=== PATIENT | male | born 1955 | race Caucasian/White ===

== ENCOUNTER 2019-01-23 13:18 | Outpatient (RCR) | payer BC, SELFPAY | END 2019-01-23 23:59 | LOC: NS 13:18 | PROVIDERS: Family Provider Internal Medicine; PCP Internal Medicine; Visit Provider Orthopaedic Surgery | DX: E66.01 Morbid (severe) obesity due to excess calories (principal); Z68.42 Body mass index [BMI] 45.0-49.9, adult; Z71.3 Dietary counseling and surveillance | CPT/HCPCS: 97802 ==

== ENCOUNTER → 2019-07-13 11:10 | Outpatient (CLI) | payer BC, SELFPAY ==
[2019-07-13 12:06] LABS: AST(SGOT) 66 U/L (15-37); Alanine Aminotransfer ALT/SGPT 75 U/L (16-61); Albumin, Serum 3.7 g/dL (3.2-5.0); Alkaline Phosphatase 70 U/L (45-117); Globulin 4.3 g/dL (2.2-4.2)
== END ==
PROVIDERS: Family Provider Internal Medicine; PCP Internal Medicine; Visit Provider Family Medicine
DX: R74.8 Abnormal levels of other serum enzymes (principal)
CPT/HCPCS: 36415; 80076

== ENCOUNTER → 2019-10-12 10:30 | Outpatient (CLI) | payer BC, SELFPAY ==
[2019-10-12 12:20] LABS: AST(SGOT) 40 U/L (15-37); Alanine Aminotransfer ALT/SGPT 54 U/L (16-61); Albumin, Serum 3.9 g/dL (3.2-5.0); Alkaline Phosphatase 68 U/L (45-117); Bilirubin, Direct 0.23 mg/dL (0.00-0.30); Protein, Total 7.9 g/dL (6.4-8.2)
== END ==
PROVIDERS: Family Provider Internal Medicine; PCP Internal Medicine; Referring Provider Family Medicine; Visit Provider Family Medicine
DX: R74.8 Abnormal levels of other serum enzymes (principal)
CPT/HCPCS: 36415; 80076

== ENCOUNTER → 2023-10-14 | Outpatient (CLI) | payer MEDICARE, OTHER, SELFPAY ==
--- NOTE | 2023-10-14 09:57 | MRI_ITS ---
EXAM: MR brain with and without contrast. HISTORY: Parkinson''s disease TECHNIQUE: MR Brain WO/W Contrast. Standard MR sequences were obtained with and without contrast. Postcontrast T1-weighted images were obtained after the administration of IV 30ML CLARISCAN. COMPARISON: None. LIMITATIONS: None. BRAIN: Mild to moderate white matter changes bilaterally. No diffusion abnormalities. No enhancing lesions. Features of the substantia nigra not well delineated. VENTRICLES: No hydrocephalus. EXTRA-AXIAL SPACES: No hemorrhages, fluid collections, or masses. CALVARIUM/SKULL BASE: Normal. FACE/SINUSES: Visualized portions normal. SOFT TISSUES: Normal. OTHER: None. CONCLUSION: Features of the substantia nigra are not well delineated. Ultra high field MRI would better evaluate the substantia nigra. Mild to moderate white matter changes are nonspecific, but often secondary to chronic microvascular ischemia. No acute infarct. No enhancing lesions. Electronically Signed: Ronni Nunes MD at 21:40 EST , MRI/Brain W/WO Contrast IMPRESSION: undefined
[2023-10-14 10:45] LABS: Hematocrit 44.5 % (40-54); Hemoglobin 15.2 g/dL (13.0-16.5); Mean Corp Hgb Conc 34.2 g/dL (32-36); Mean Corpuscular Hgb 30.3 pg (27.0-32.0); Mean Corpuscular Volume 88.8 fL (80-94); Mean Platelet Vol. 10.8 fl (6.2-12.0); Platelet Count 177 K/mm3 (150-450); RBC Distribution Width CV 13.5 % (11.6-14.6); RBC Distribution Width SD 43.8 fl (35.1-43.9); Red Blood Count 5.01 M/mm3 (4.6-6.2); White Blood Count 6.4 K/mm3 (4.4-11.0)
[2023-10-14 10:45] LABS: CREATININE FINGERSTICK < 1.0 mg/dL (0.70-1.30); EGFR FINGERSTICK > 60.0000 mL/min (>60)
[2023-10-14 11:12] LABS: Vitamin B12 1028 pg/mL (211-911)
[2023-10-14 12:00] LABS: ALB/GLOB Ratio 0.8 RATIO (0.9-2.4); AST(SGOT) 61 U/L (15-37); Alanine Aminotransfer ALT/SGPT 18 U/L (16-61); Albumin, Serum 3.5 g/dL (3.2-5.0); Alkaline Phosphatase 70 U/L (45-117); Anion Gap 3 (5-15); BUN 15 mg/dL (7-18); Chloride 107 mmol/L (98-107); Creatinine, Serum 0.79 mg/dL (0.70-1.30); EST Glomerular Filtration Rate 104 mL/min (>60); Est Glom Filt Rate - Afr Amer 126 mL/min (>60); Globulin 4.3 g/dL (2.2-4.2); Glucose 118 mg/dL (74-106); Protein, Total 7.8 g/dL (6.4-8.2); Sodium Level 140 mmol/L (136-145)
[2023-10-18 16:09] LABS: Free Kappa Light Chains 24.8 mg/L (3.3-19.4); Free Lambda Light Chains 17.8 mg/L (5.7-26.3)
== END | disposition home or self-care (01) ==
PROVIDERS: PCP Internal Medicine; Visit Provider Psychiatry & Neurology Neurology
DX: G20.A1 Parkinson's disease without dyskinesia, without mention of fluctuations (principal); F81.9 Developmental disorder of scholastic skills, unspecified; G62.9 Polyneuropathy, unspecified; Z79.899 Other long term (current) drug therapy
CPT/HCPCS: 36415; 70553; 80053; 82607; 82746; 83883; 84425; 84443; 85027; A9575

== ENCOUNTER → 2023-12-07 | Outpatient (CLI) | payer MEDICARE, OTHER, SELFPAY ==
--- OUTSIDE RECORDS SUMMARY | 2023-12-07 12:46 | XMS RPT_ITS | CCD ---
Author Name Unknown Address [address] [place] [address] Organization [facility] Care Team Providers Care Punch Press Setter Name Role Phone AM[place] [place] CARMEN Unavailable Unavailab enrique HUYNH[place] [place] CARMEN Unavailable Unavailab enrique HUYNH[place] [place] CARMEN Unavailable Unavailab le AMINA[place] [place] CARMEN Unavailable Unavailab le AMINA[place] [place] CARMEN Unavailable Unavailab le AMINA[place] [place] CARMEN Unavailable Unavailab le AMINA([facility] [place] CARMEN Unavailable Unavailab le AMINA([facility] [place] CARMEN Unavailable Unavailab le AMINA([facility] [place] CARMEN Unavailable Unavailab le AMINA([facility] [place] CARMEN Unavailable Unavailab le AMINA([facility] [place] CARMEN Unavailable UnavailCHEIKH Aguirre PA-C Attending CHEIKH Klein PA-C Primary Care Lindsayab CHEIKH Contreras PA-C Admitting UnavailReagan Johnson MD Primary Care Provider Reagan Oconnor MD Primary Care Provider Reagan Ocnonor MD Primary Care Provider Tay Mccloud PA-C Unavailable Neurology Provider Unavailable Unavailable Lauren Alexander LPN Unavailable Unavailable Unavailable Medications Current Medications Medication Drug Class(es) Dates Sig (Normalized) Sig (Original) propranolol hydrochloride 40 mg oral tablet (3 sources) beta-Adrenergic Alvarez Start: 05-05-2023 propranoloL 40 mg tablet ; 1 (one) tablet two times daily for 30 days Quantity: 60 {Tablet} Refills: 2 Ordered: 05-May-2023 CARMEN Mccloud Start: 05-May-2023 Completed/Discontinued Medications Medication Drug Class(es) Dates Sig (Normalized) Sig (Original) dorzolamide 20 mg/ml / timolol 5 mg/ml ophthalmic solution (8 sources) Carbonic Anhydrase Inhibitor, beta-Adrenergic Alvarez Start: 10-31-2018 take 1 drop(s) into the eye(s) every twelve hours dorzolamide-timol ol (COSOPT) 22.3-6.8 mg/mL ophthalmic solution INSTILL 1 DROP INTO BOTH EYES EVERY 12 HOURS 4 10/31/2018 Active Problems Active Problems Problem Classification Problem Date Documented Date Episodic/Chronic Essential hypertension (1 source) Essential hypertension Onset: 07-11-2018 Glaucoma (8 sources) Glaucoma; Translations: [Other specified glaucoma] Onset: 02-01-2019 02-01-2019 Chronic Hyperplasia of prostate (8 sources) Benign prostatic hypertrophy with outflow obstruction; Translations: [Benign prostatic hyperplasia with lower urinary tract symptoms] Onset: 10-28-2009 10-28-2009 Chronic Osteoarthritis (3 sources) Unilateral primary osteoarthritis, right knee; Translations: [Unilateral primary osteoarthritis, right knee] Onset: 03-06-2021 Chronic Other ear and sense organ disorders (11 sources) Hearing loss; Translations: [Unspecified hearing loss, unspecified ear] Onset: 02-01-2019 02-01-2019 Chronic Other hereditary and degenerative nervous system conditions (12 sources) Resting tremor; Translations: [Other specified forms of tremor] 06-01-2023 Chronic Other lower respiratory disease (6 sources) Cough; Translations: [Cough] 04-25-2023 Episodic Other screening for suspected conditions (not mental disorders or infectious disease) (12 sources) Patient encounter status; Translations: [Encounter for screening for lipoid disorders] 04-25-2023 Episodic Residual codes; unclassified (6 sources) Edema of lower extremity; Translations: [Localized edema] 04-25-2023 Episodic Retinal detachments; defects; vascular occlusion; and retinopathy (8 sources) Degenerative disorder of macula ; Translations: [Unspecified macular degeneration] Onset: 02-01-2019 02-01-2019 Chronic Unclassified (1 source) Other skin changes due to chronic exposure to nonionizing radiation / L57.8(ICD-10) Onset: 07-11-2018 Unclassified (1 source) Actinic keratosis / L57.0(ICD-10) Onset: 07-11-2018 Unclassified (1 source) Exposure to sunlight, initial encounter / X32.XXXA(ICD-10) Onset: 07-11-2018 Unclassified (1 source) Unilateral primary osteoarthritis, right knee / M17.11(ICD-10) Onset: 03-28-2018 Unclassified (1 source) Body mass index (BMI) 45.0-49.9, adult (HCC) / Z68.42(ICD-10) Onset: 03-28-2018 Unclassified (1 source) Unspecified sensorineural hearing loss / H90.5(ICD-10) Onset: 03-28-2018 Unclassified (1 source) Morbid (severe) obesity due to excess calories (HCC) / E66.01(ICD-10) Onset: 03-28-2018 Past or Other Problems Problem Classification Problem Date Documented Da te Episodic/Chronic Unclassified (3 sources) New Pt consult - Pt transferring care to [facility]. Pt DOUGIE, sister states went to doctor in [place] briefly at [facility]. Wants to discuss tremors and c/o cough. 04-25-2023 Results Test Name Value Interpretation Reference Range Facil ity Vital Signs Date Time Vital Sign Value Performing Clinician Laura simon 04-25-2023 13:55-0400 Body height 184.15 cm Boyd Vera LPN [facility] [email or web address] 04-25-2023 13:55-0400 Body mass index (BMI) [Ratio] 50.56 kg/m2 Boyd Vera LPN [facility] [employer] [facility] 04-25-2023 13:55-0400 Body surface area Derived from formula 2.81 m2 Boyd Vera LPN [facility] [employer] [facility] 04-25-2023 13:55-0400 Body weight 171.46 kg Boyd Vera LPN [facility] [employer] [facility] 04-25-2023 13:55-0400 Diastolic blood pressure 82 mm[Hg] Boyd Vera LPN [facility] Encounters Encounter Date Encounter Type Care Provider Facility Start: 08-23-2023 ambulatory Margarita Hackett MA [facility] [place] Procedures Date Procedure Procedure Detail Performing Clinician Start: 02-01-2019 Lipid 1996 panel - S mily or Plasma Margarita Hackett MA Plan of Treatment Date Care Activity Detail Author Start: 02-02-2024 Lipid 1996 panel - S mily or Plasma Lipid Screening [facility] Start: 02-02-2024 LIPID SCREEN LIPID SCREEN [facility] Start: 02-02-2024 PROSTATE CANCER SCRE ENING DISCUSSION PROSTATE CANCER SCREENING DISCUSSION [facility] Start: 06-24-2023 Covid-19 Vaccine () Covid-19 Vaccine () [facility] Start: 06-24-2023 Influenza vaccination [facility] Start: 10-24-2022 ADVANCE DIRECTIVE DISCUSSION ADVANCE DIRECTIVE DISCUSSION [facility] Start: 10-24-2022 [facility] Start: 06-24-2022 Influenza vaccination INFLUENZA (#1) [facility] Start: 02-01-2022 [facility] Start: 02-01-2022 Diabetes Screening Diabetes Screenin g [facility] Start: 10-24-2021 ADVANCE DIRECTIVE DISCUSSION ADVANCE DIRECTIVE DISCUSSION [facility] Start: 10-24-2021 DEPRESSION ASSESSMENT DEPRESSION ASS ESSMENT [facility] Start: 06-24-2021 Influenza vaccination INFLUENZA (#1) [facility] Start: 06-15-2021 COVID-19 VACCINE (3 - Booster for Moderna series) COVID-19 VACCINE (3 - Booster for Moderna series) [facility] Start: 03-10-2021 COVID-19 VACCINE (3 - Booster for Moderna series) COVID-19 VACCINE (3 - Booster for Moderna series) [facility] Start: 2020 Pneumococcal Vaccine : 65+ (1 - PCV) Pneumococcal Vaccine: 65+ (1 - PCV) [facility] Start: 2020 PNEUMOCOCCAL: 65+ (1 - PCV) PNEUMOCOCCAL: 65+ (1 - PCV) [facility] Start: 2020 PNEUMOVAX AGE 65 AND OVER WITH 5YR LOOKBACK (#1) PNEUMOVAX AGE 65 AND OVER WITH 5YR LOOKBACK (#1) [facility] Start: 2015 RSV Vaccine (1 - 1-d ose 60+ series) RSV Vaccine (1 - 1-dose 60+ series) [facility] Start: 2005 SHINGRIX VACCINE (1 of 2) SHINGRIX V ACCINE (1 of 2) [facility] Start: 2000 COLOGUARD (FIT-DNA) COLOGUARD (FIT-D NA) [facility] Start: 2000 Colonoscopy COLONOSCOPY [facility] Start: 2000 COLORECTAL CANCER SCREENING COLORECTAL CANCER SCREENING [facility] Start: [address] COLONOGRAPHY [facility] Start: 2000 FECAL OCCULT BLOOD FECAL OCCULT BLOO D [facility] Start: 2000 SIGMOIDOSCOPY SIGMOIDOSCOPY [place] Start: 1974 Urine microalbumin profile [facility] Start: 1967 Adult depression scr eening assessment DEPRESSION SCREENING [facility] Immunizations Immunization Date Immunization Notes Care Provider Fa cili 01-13-2021 COVID-19 vaccine, fu ll dose (MODERNA) Margarita Hackett MA [facility] 12-18-2020 COVID-19 vaccine, fu ll dose (MODERNA) Margarita Hackett MA [facility] Payers Date Payer Category Payer Medicare MEDICARE MEDICAR E A AND B [id number] 2020-Present [phone] [address] [address] [place] [address] Medicare [id number] 2020 Medicare MEDICARE MEDICAR E A AND B [id number] 2020-Present [phone] [address] [address] [place] [address] Medicare [id number] 2020 Unknown MMO MMO MEDICARE SUPPLEMENT [id number] 2020-Present [phone] [address] [place] [address] Indemnity [id number] 2020 Unknown [id number] 1955 Unknown [id number] Medicare [id number] Unknown [id number] Unknown [id number] Social History Date Type Detail Facility Start: 11-08-2018 Tobacco smoking stat [facility] Never smoked tobacco [facility] Start: 02-20-2021 Alcohol intake Not Asked [place] Start: 1955 Sex Assigned At Not on file [facility] Start: 11-08-2018 Tobacco use and exposure Smokeless tobacco non-user [facility] Work Phone: Start: 10-01-2020 End: 02-20-2021 History of Social function [facility] Start: 10-01-2020 End: 02-20-2021 Tobacco use panel [facility] National Score (1-100), lower number is lower risk Not on file [facility] Male [facility] [employer] [facility] Work Phone: Tobacco smoking consumption unknown [employer], [employer] Work Phone: NEGATED: Highlighted row No Social History Information Available No Social History Information Available [facility] [employer] Work Phone: Clinical Notes 01-18-2022 to 09-19-2023 Margarita Hackett MA - 08/23/2023 7:29 AM Leticia Hackett MA - 04/28/2023 8:56 AM Leticia Hackett MA - 02/17/2023 10:28 AM Leticia Hackett MA - 01/11/2023 12:33 PM EDT Note Date & Type Note Facility 09-19-2023 Note Patient Outreach (JANET TNLASHAUN) CHEIKH SIMPSON ([id number]) 1955 M DEF Date Time Provider Department 09/19/23 MARGARITA HACKETTV During your visit today, we recorded the following information about you: Margarita Hackett MA 09/19/2023 2:19 PM Signed POPULATION HEALTH NAVIGATION OUTREACH Action/ NO MYCHART MESSAGE ANNUAL MEDICARE WELLNESS Colorectal Cancer Screening Never done Advance Directive Discussion Never done Influenza Vaccine(1) Never done Patient Identified by Name and : NO Outreach Outcome/Action Unable to reach patient: Left message Did you use a PCP flex slot to schedule this appointment? N/A Reason for Outreach Care Gap or Scheduling/Wellness visits Payer: Payor: MMO / Plan: [facility] MEDICARE SUPPLEMENT / Product Type: Indemnity / Care Gap Reviewed:: Annual Wellness visit Colorectal Cancer Screening Flu Vaccine Reminder: Reminder note to check Health Maintenance for items below Health Maintenance items due: DTaP,Tdap,Td Vaccine(1 - Tdap) Never done Colorectal Cancer Screening Never done Shingrix Vaccine(1 of 2) Never done RSV Vaccine(1 - 1-dose 60+ series) Never done Pneumococcal Vaccine: 65+(1 - PCV) Never done Diabetes Screening due on 02/01/2022 Advance Directive Discussion Never done Depression Assessment Never done Influenza Vaccine(1) Never done Covid-19 Vaccine(3 - season) due on 06/24/2023 Navigation Signature: Margarita Hackett MA September 19, 2023 10:08 AM Allergies As of Date: 09/19/2023 (No Known Allergies) Date Reviewed: 02/01/2019 Reviewed by: Jovita Xavier LPN - Fully Assessed Reason for Visit: Population Health Navigation Outreach [3910] Cmt: ACO CARE GAP Prescriptions as of 09/19/2023 - dorzolamide-timolol (COSOPT) 22.3-6.8 mg/mL ophthalmic solution INSTILL 1 DROP INTO BOTH EYES EVERY 12 HOURS Problem List As Of Date 09/19/2023 Noted Resolved BPH w Urinary Obs/LUTS [N40.1, N13.8] 10/28/2009 Hard of hearing [H91.90] 02/01/2019 Other specified glaucoma [H40.89] 02/01/2019 Macular degeneration [H35.30] 02/01/2019 Encounter Status:Closed by MARGARITA HACKETT on 09/19/23 [facility] 09-19-2023 Note HNO ID: [id number] Author: Margarita Hackett MA Service: ? Author Type: Manager Private Type: Progress Notes Filed: 09/19/2023 2:19 PM Note Text: POPULATION HEALTH NAVIGATION OUTREACH Action/LV NO MYCHART MESSAGE ANNUAL MEDICARE WELLNESS Colorectal Cancer Screening Never done Advance Directive Discussion Never done Influenza Vaccine(1) Never done Patient Identified by Name and : NO Outreach Outcome/Action Unable to reach patient: Left message Did you use a PCP flex slot to schedule this appointment? N/A Reason for Outreach Care Gap or Scheduling/Wellness visits Payer: Payor: MMO / Plan: MMO MEDICARE SUPPLEMENT / Product Type: Indemnity / Care Gap Reviewed:: Annual Wellness visit Colorectal Cancer Screening Flu Vaccine Reminder: Reminder note to check Health Maintenance for items below Health Maintenance items due: DTaP,Tdap,Td Vaccine(1 - Tdap) Never done Colorectal Cancer Screening Never done Shingrix Vaccine(1 of 2) Never done RSV Vaccine(1 - 1-dose 60+ series) Never done Pneumococcal Vaccine: 65+(1 - PCV) Never done Diabetes Screening due on 02/01/2022 Advance Directive Discussion Never done Depression Assessment Never done Influenza Vaccine(1) Never done Covid-19 Vaccine( - season) due on 06/24/2023 Navigation Signature: Margarita Hackett MA September 19, 2023 10:08 AM [facility] 08-23-2023 Note Patient Outreach (JANET TNLASHAUN) SIMPSONCHEIKH SOLOMON ([id number]) 1955 M DEF Date Time Provider Department 08/23/23 MARGARITA HACKETT During your visit today, we recorded the following information about you: Margarita Hackett MA 08/23/2023 1:06 PM Signed POPULATION HEALTH NAVIGATION OUTREACH Action/FYI LVM NO MYCHART ANNUAL MEDICARE WELLNESS Colorectal Cancer Screening Never done Advance Directive Discussion Never done Influenza Vaccine(1) Never [id number] season) due on 06/24/2023 Patient Identified by Name and : NO Outreach Outcome/Action Unable to reach patient: Left message Did you use a PCP flex slot to schedule this appointment? N/A Reason for Outreach Care Gap or Scheduling/Wellness visits Payer: Payor: MMO / Plan: O MEDICARE SUPPLEMENT / Product Type: Indemnity / Care Gap Reviewed:: Annual Wellness visit Colorectal Cancer Screening Flu Vaccine Reminder: Reminder note to check Health Maintenance for items below Health Maintenance items due: DTaP,Tdap,Td Vaccine(1 - Tdap) Never done Colorectal Cancer Screening Never done Shingrix Vaccine(1 of 2) Never done RSV Vaccine(1 - 1-dose 60+ series) Never done Pneumococcal Vaccine: 65+(1 - PCV) Never done Diabetes Screening due on 02/01/2022 Advance Directive Discussion Never done Depression Assessment Never done Influenza Vaccine(1) Never done Covid-19 Vaccine(3 - season) due on 06/24/2023 Navigation Signature: Margarita Hackett MA August 23, 2023 7:29 AM Allergies As of Date: 08/23/2023 (No Known Allergies) Date Reviewed: 02/01/2019 Reviewed by: Jovita Xavier LPN - Fully Assessed Reason for Visit: Population Health Navigation Outreach [3910] Cmt: ACO CARE GAP Prescriptions as of 08/23/2023 - dorzolamide-timolol (COSOPT) 22.3-6.8 mg/mL ophthalmic solution INSTILL 1 DROP INTO BOTH EYES EVERY 12 HOURS Problem List As Of Date 08/23/2023 Noted Resolved BPH w Urinary Obs/LUTS [N40.1, N13.8] 10/28/2009 Hard of hearing [H91.90] 02/01/2019 Other specified glaucoma [H40.89] 02/01/2019 Macular degeneration [H35.30] 02/01/2019 Encounter Status:Closed by MARGARITA HACKETT on 08/23/23 [facility] 08-23-2023 Note HNO ID: [id number] Author: Margarita Hackett MA Service: ? Author Type: Manager Private Type: Progress Notes Filed: 08/23/2023 1:06 PM Note Text: POPULATION HEALTH NAVIGATION OUTREACH Action/FYI LVM NO MYCHART ANNUAL MEDICARE WELLNESS Colorectal Cancer Screening Never done Advance Directive Discussion Never done Influenza Vaccine(1) Never [id number]) due on 06/24/2023 Patient Identified by Name and : NO Outreach Outcome/Action Unable to reach patient: Left message Did you use a PCP flex slot to schedule this appointment? N/A Reason for Outreach Care Gap or Scheduling/Wellness visits Payer: Payor: MMO / Plan: [facility] MEDICARE SUPPLEMENT / Product Type: Indemnity / Care Gap Reviewed:: Annual Wellness visit Colorectal Cancer Screening Flu Vaccine Reminder: Reminder note to check Health Maintenance for items below Health Maintenance items due: DTaP,Tdap,Td Vaccine(1 - Tdap) Never done Colorectal Cancer Screening Never done Shingrix Vaccine(1 of 2) Never done RSV Vaccine(1 - 1-dose 60+ series) Never done Pneumococcal Vaccine: 65+(1 - PCV) Never done Diabetes Screening due on 02/01/2022 Advance Directive Discussion Never done Depression Assessment Never done Influenza Vaccine(1) Never done Covid-19 Vaccine(3 - ) due on 06/24/2023 Navigation Signature: Margarita Hackett MA August 23, 2023 7:29 AM [facility] 08-23-2023 History of Present illness Narrative POPULATION HEALTH NAVIGATION OUTREACH Action/FYI LVM NO MYCHART ANNUAL MEDICARE WELLNESS Colorectal Cancer Screening Never done Advance Directive Discussion Never done Influenza Vaccine(1) Never [id number] season) due on 06/24/2023 Patient Identified by Name and : NO Outreach Outcome/Action Unable to reach patient: Left message Did you use a PCP flex slot to schedule this appointment? N/A Reason for Outreach Care Gap or Scheduling/Wellness visits Payer: Payor: MMO / Plan: MMO MEDICARE SUPPLEMENT / Product Type: Indemnity / Care Gap Reviewed:: Annual Wellness visit Colorectal Cancer Screening Flu Vaccine Reminder: Reminder note to check Health Maintenance for items below Health Maintenance items due: DTaP,Tdap,Td Vaccine(1 - Tdap) Never done Colorectal Cancer Screening Never done Shingrix Vaccine(1 of 2) Never done RSV Vaccine(1 - 1-dose 60+ series) Never done Pneumococcal Vaccine: 65+(1 - PCV) Never done Diabetes Screening due on 02/01/2022 Advance Directive Discussion Never done Depression Assessment Never done Influenza Vaccine(1) Never done Covid-19 Vaccine( - season) due on 06/24/2023 Navigation Signature: Margarita Hackett MA August 23, 2023 7:29 AM documented in this encounter [facility] 04-28-2023 Note Patient Outreach (NE TNAV) CHEIKH SIMPSON ([id number]) 1955 M [facility] Date Time Provider Department 04/28/23 MARGARITA HACKETT [employer] During your visit today, we recorded the following information about you: Margarita Hackett MA 04/28/2023 2:33 PM Signed POPULATION HEALTH NAVIGATION OUTREACH Action/I LVM NO MYCHART MESSAGE SENT ANNUAL MEDICARE WELLNESS EXAM COLORECTAL CANCER SCREENING Never done ADVANCE DIRECTIVE DISCUSSION Patient Identified by Name and : NO Outreach Outcome/Action Unable to reach patient: Left message Did you use a PCP flex slot to schedule this appointment? N/A Reason for Outreach Care Gap or Scheduling/Wellness visits Payer: Payor: MMO / Plan: MMO MEDICARE SUPPLEMENT / Product Type: Indemnity / Care Gap Reviewed:: Annual Wellness visit Colorectal Cancer Screening Reminder: Reminder note to check Health Maintenance for items below Health Maintenance items due: DTAP,TDAP,TD(1 - Tdap) Never done COLORECTAL CANCER SCREENING Never done SHINGRIX VACCINE(1 of 2) Never done PNEUMOCOCCAL: 65+(1 - PCV) Never done COVID-19 VACCINE(3 - Booster for Moderna series) due on 03/10/2021 DIABETES SCREEN due on 02/01/2022 ADVANCE DIRECTIVE DISCUSSION Never done DEPRESSION ASSESSMENT Never done Navigation Signature: Margarita Hackett MA April 28, 2023 8:56 AM Allergies As of Date: 04/28/2023 (No Known Allergies) Date Reviewed: 02/01/2019 Reviewed by: Jovita Xavier LPN - Fully Assessed Reason for Visit: Population Health Navigation Outreach [3910] Cmt: ACO CHLEO PCSA Prescriptions as of 04/28/2023 - dorzolamide-timolol (COSOPT) 22.3-6.8 mg/mL ophthalmic solution INSTILL 1 DROP INTO BOTH EYES EVERY 12 HOURS Problem List As Of Date 04/28/2023 Noted Resolved BPH w Urinary Obs/LUTS [N40.1, N13.8] 10/28/2009 Hard of hearing [H91.90] 02/01/2019 Other specified glaucoma [H40.89] 02/01/2019 Macular degeneration [H35.30] 02/01/2019 Encounter Status:Closed by MARGARITA HACKETT on 04/28/23 [facility] 04-28-2023 Note HNO ID: [id number] Author: Margarita Hackett MA Service: ? Author Type: Manager Private Type: Progress Notes Filed: 04/28/2023 2:33 PM Note Text: POPULATION HEALTH NAVIGATION OUTREACH Action/I LVM NO MYCHART MESSAGE SENT ANNUAL MEDICARE WELLNESS EXAM COLORECTAL CANCER SCREENING Never done ADVANCE DIRECTIVE DISCUSSION Patient Identified by Name and : NO Outreach Outcome/Action Unable to reach patient: Left message Did you use a PCP flex slot to schedule this appointment? N/A Reason for Outreach Care Gap or Scheduling/Wellness visits Payer: Payor: MMO / Plan: MMO MEDICARE SUPPLEMENT / Product Type: Indemnity / Care Gap Reviewed:: Annual Wellness visit Colorectal Cancer Screening Reminder: Reminder note to check Health Maintenance for items below Health Maintenance items due: DTAP,TDAP,TD(1 - Tdap) Never done COLORECTAL CANCER SCREENING Never done SHINGRIX VACCINE(1 of 2) Never done PNEUMOCOCCAL: 65+(1 - PCV) Never done COVID-19 VACCINE(3 - Booster for Moderna series) due on 03/10/2021 DIABETES SCREEN due on 02/01/2022 ADVANCE DIRECTIVE DISCUSSION Never done DEPRESSION ASSESSMENT Never done Navigation Signature: Margarita Hackett MA April 28, 2023 8:56 AM [facility] 04-28-2023 History of Present illness Narrative POPULATION HEALTH NAVIGATION OUTREACH Action/FYI LVM NO MYCHART MESSAGE SENT ANNUAL MEDICARE WELLNESS EXAM COLORECTAL CANCER SCREENING Never done ADVANCE DIRECTIVE DISCUSSION Patient Identified by Name and : NO Outreach Outcome/Action Unable to reach patient: Left message Did you use a PCP flex slot to schedule this appointment? N/A Reason for Outreach Care Gap or Scheduling/Wellness visits Payer: Payor: MMO / Plan: MMO MEDICARE SUPPLEMENT / Product Type: Indemnity / Care Gap Reviewed:: Annual Wellness visit Colorectal Cancer Screening Reminder: Reminder note to check Health Maintenance for items below Health Maintenance items due: DTAP,TDAP,TD(1 - Tdap) Never done COLORECTAL CANCER SCREENING Never done SHINGRIX VACCINE(1 of 2) Never done PNEUMOCOCCAL: 65+(1 - PCV) Never done COVID-19 VACCINE(3 - Booster for Moderna series) due on 03/10/2021 DIABETES SCREEN due on 02/01/2022 ADVANCE DIRECTIVE DISCUSSION Never done DEPRESSION ASSESSMENT Never done Navigation Signature: Margarita Hackett MA April 28, 2023 8:56 AM documented in this encounter [facility] 02-17-2023 Note Patient Outreach (JANET TNAV) CHEIKH SIMPSON ([id number]) 1955 [place] Date Time Provider Department 02/17/23 MARGARITA HACKETT NETNA[employer] During your visit today, we recorded the following information about you: Margarita Hackett MA 02/17/2023 2:09 PM Signed POPULATION HEALTH NAVIGATION OUTREACH Action/FYNed LVM NO MYCHART HCC gap E66.01 - Morbid (severe) obesity due to excess calories CARE GAP ANNUAL MEDICARE WELLNESS COLORECTAL CANCER SCREENING Never done ADVANCE DIRECTIVE DISCUSSION Never done MYCHART ACTIVATION Patient Identified by Name and : NO Outreach Outcome/Action Unable to reach patient: Left message Did you use a PCP flex slot to schedule this appointment? N/A Reason for Outreach HCC or suspected condition Payer: Payor: MMO / Plan: MMO MEDICARE SUPPLEMENT / Product Type: Indemnity / Care Gap Reviewed:: Annual Wellness visit Colorectal Cancer Screening Reminder: Reminder note to check Health Maintenance for items below Health Maintenance items due: DTAP,TDAP,TD(1 - Tdap) Never done COLORECTAL CANCER SCREENING Never done SHINGRIX VACCINE(1 of 2) Never done PNEUMOCOCCAL: 65+(1 - PCV) Never done COVID-19 VACCINE(3 - Booster for Moderna series) due on 03/10/2021 DIABETES SCREEN due on 02/01/2022 ADVANCE DIRECTIVE DISCUSSION Never done DEPRESSION ASSESSMENT Never done Navigation Signature: Margarita Hackett MA February 17, 2023 10:28 AM Allergies As of Date: 02/17/2023 (No Known Allergies) Date Reviewed: 02/01/2019 Reviewed by: Jovita Xavier LPN - Fully Assessed Reason for Visit: Population Health Navigation Outreach [3910] Cmt: HCC GAP Prescriptions as of 02/17/2023 - dorzolamide-timolol (COSOPT) 22.3-6.8 mg/mL ophthalmic solution INSTILL 1 DROP INTO BOTH EYES EVERY 12 HOURS Problem List As Of Date 02/17/2023 Noted Resolved BPH w Urinary Obs/LUTS [N40.1, N13.8] 10/28/2009 Hard of hearing [H91.90] 02/01/2019 Other specified glaucoma [H40.89] 02/01/2019 Macular degeneration [H35.30] 02/01/2019 Encounter Status:Closed by MARGARITA HACKETT on 02/17/23 [facility] 02-17-2023 Note HNO ID: [id number] Author: Margarita Hackett MA Service: ? Author Type: Manager Private Type: Progress Notes Filed: 02/17/2023 2:09 PM Note Text: POPULATION HEALTH NAVIGATION OUTREACH Action/FYI LVM NO MYCHART HCC gap E66.01 - Morbid (severe) obesity due to excess calories CARE GAP ANNUAL MEDICARE WELLNESS COLORECTAL CANCER SCREENING Never done ADVANCE DIRECTIVE DISCUSSION Never done MYCHART ACTIVATION Patient Identified by Name and : NO Outreach Outcome/Action Unable to reach patient: Left message Did you use a PCP flex slot to schedule this appointment? N/A Reason for Outreach HCC or suspected condition Payer: Payor: MMO / Plan: MMO MEDICARE SUPPLEMENT / Product Type: Indemnity / Care Gap Reviewed:: Annual Wellness visit Colorectal Cancer Screening Reminder: Reminder note to check Health Maintenance for items below Health Maintenance items due: DTAP,TDAP,TD(1 - Tdap) Never done COLORECTAL CANCER SCREENING Never done SHINGRIX VACCINE(1 of 2) Never done PNEUMOCOCCAL: 65+(1 - PCV) Never done COVID-19 VACCINE(3 - Booster for Moderna series) due on 03/10/2021 DIABETES SCREEN due on 02/01/2022 ADVANCE DIRECTIVE DISCUSSION Never done DEPRESSION ASSESSMENT Never done Navigation Signature: Margarita Hackett MA February 17, 2023 10:28 AM [facility] 02-17-2023 History of Present illness Narrative POPULATION HEALTH NAVIGATION OUTREACH Action/FYI LVM NO MYCHART HCC gap E66.01 - Morbid (severe) obesity due to excess calories CARE GAP ANNUAL MEDICARE WELLNESS COLORECTAL CANCER SCREENING Never done ADVANCE DIRECTIVE DISCUSSION Never done MYCHART ACTIVATION Patient Identified by Name and : NO Outreach Outcome/Action Unable to reach patient: Left message Did you use a PCP flex slot to schedule this appointment? N/A Reason for Outreach HCC or suspected condition Payer: Payor: MMO / Plan: MMO MEDICARE SUPPLEMENT / Product Type: Indemnity / Care Gap Reviewed:: Annual Wellness visit Colorectal Cancer Screening Reminder: Reminder note to check Health Maintenance for items below Health Maintenance items due: DTAP,TDAP,TD(1 - Tdap) Never done COLORECTAL CANCER SCREENING Never done SHINGRIX VACCINE(1 of 2) Never done PNEUMOCOCCAL: 65+(1 - PCV) Never done COVID-19 VACCINE(3 - Booster for Moderna series) due on 03/10/2021 DIABETES SCREEN due on 02/01/2022 ADVANCE DIRECTIVE DISCUSSION Never done DEPRESSION ASSESSMENT Never done Navigation Signature: Margarita Hackett MA February 17, 2023 10:28 AM documented in this encounter [facility] 01-11-2023 Note HNO ID: [id number] Author: Margarita Hackett MA Service: ? Author Type: Manager Private Type: Progress Notes Filed: 01/12/2023 1:05 PM Note Text: POPULATION HEALTH NAVIGATION OUTREACH Action/FYI LVM NO MYCHART ANNUAL MEDICARE WELLNESS EXAM COLORECTAL CANCER SCREENING Never done INFLUENZA(1) Never done Patient Identified by Name and : NO Outreach Outcome/Action Unable to reach patient: Left message Did you use a PCP flex slot to schedule this appointment? N/A Reason for Outreach Care Gap or Scheduling/Wellness visits Payer: Payor: MMO / Plan: MMO MEDICARE SUPPLEMENT / Product Type: Indemnity / Care Gap Reviewed:: Annual Wellness visit Colorectal Cancer Screening Flu Vaccine Reminder: Reminder note to check Health Maintenance for items below Health Maintenance items due: DTAP,TDAP,TD(1 - Tdap) Never done COLORECTAL CANCER SCREENING Never done SHINGRIX VACCINE(1 of 2) Never done PNEUMOCOCCAL: 65+(1 - PCV) Never done COVID-19 VACCINE(3 - Booster for Moderna series) due on 03/10/2021 DIABETES SCREEN due on 02/01/2022 INFLUENZA(1) Never done ADVANCE DIRECTIVE DISCUSSION Never done DEPRESSION ASSESSMENT Never done Navigation Signature: Margarita Hackett MA January 11, 2023 12:33 PM [facility] 01-11-2023 Note Patient Outreach (JANET NORRISAV) CHEIKH SIMPSON ([id number]) 1955 M DEF Date Time Provider Department 01/11/23 MARGARITA HACKETT NETNA[facility] During your visit today, we recorded the following information about you: Margarita Hackett MA 01/12/2023 1:05 PM Signed POPULATION HEALTH NAVIGATION OUTREACH Action/FYI LVM NO MYCHART ANNUAL MEDICARE WELLNESS EXAM COLORECTAL CANCER SCREENING Never done INFLUENZA(1) Never done Patient Identified by Name and : NO Outreach Outcome/Action Unable to reach patient: Left message Did you use a PCP flex slot to schedule this appointment? N/A Reason for Outreach Care Gap or Scheduling/Wellness visits Payer: Payor: MMO / Plan: O MEDICARE SUPPLEMENT / Product Type: Indemnity / Care Gap Reviewed:: Annual Wellness visit Colorectal Cancer Screening Flu Vaccine Reminder: Reminder note to check Health Maintenance for items below Health Maintenance items due: DTAP,TDAP,TD(1 - Tdap) Never done COLORECTAL CANCER SCREENING Never done SHINGRIX VACCINE(1 of 2) Never done PNEUMOCOCCAL: 65+(1 - PCV) Never done COVID-19 VACCINE(3 - Booster for Moderna series) due on 03/10/2021 DIABETES SCREEN due on 02/01/2022 INFLUENZA(1) Never done ADVANCE DIRECTIVE DISCUSSION Never done DEPRESSION ASSESSMENT Never done Navigation Signature: Margarita Hackett MA January 11, 2023 12:33 PM Allergies As of Date: 01/11/2023 (No Known Allergies) Date Reviewed: 02/01/2019 Reviewed by: Jovita Xavier LPN - Fully Assessed Reason for Visit: Population Health Navigation Outreach [3910] Cmt: ACO CHELO PCSA Prescriptions as of 01/12/2023 - dorzolamide-timolol (COSOPT) 22.3-6.8 mg/mL ophthalmic solution INSTILL 1 DROP INTO BOTH EYES EVERY 12 HOURS Problem List As Of Date 01/11/2023 Noted Resolved BPH w Urinary Obs/LUTS [N40.1, N13.8] 10/28/2009 Hard of hearing [H91.90] 02/01/2019 Other specified glaucoma [H40.89] 02/01/2019 Macular degeneration [H35.30] 02/01/2019 Encounter Status:Closed by MARGARITA HACKETT on 01/12/23 [facility] 01-11-2023 History of Present illness Narrative POPULATION HEALTH NAVIGATION OUTREACH Action/FYI LVM NO MYCHART ANNUAL MEDICARE WELLNESS EXAM COLORECTAL CANCER SCREENING Never done INFLUENZA(1) Never done Patient Identified by Name and : NO Outreach Outcome/Action Unable to reach patient: Left message Did you use a PCP flex slot to schedule this appointment? N/A Reason for Outreach Care Gap or Scheduling/Wellness visits Payer: Payor: MMO / Plan: MMO MEDICARE SUPPLEMENT / Product Type: Indemnity / Care Gap Reviewed:: Annual Wellness visit Colorectal Cancer Screening Flu Vaccine Reminder: Reminder note to check Health Maintenance for items below Health Maintenance items due: DTAP,TDAP,TD(1 - Tdap) Never done COLORECTAL CANCER SCREENING Never done SHINGRIX VACCINE(1 of 2) Never done PNEUMOCOCCAL: 65+(1 - PCV) Never done COVID-19 VACCINE(3 - Booster for Moderna series) due on 03/10/2021 DIABETES SCREEN due on 02/01/2022 INFLUENZA(1) Never done ADVANCE DIRECTIVE DISCUSSION Never done DEPRESSION ASSESSMENT Never done Navigation Signature: Margarita Hackett MA January 11, 2023 12:33 PM documented in this encounter [facility] 11-11-2022 Note HNO ID: [id number] Author: Margarita Hackett MA Service: ? Author Type: Manager Private Type: Progress Notes Filed: 11/11/2022 4:25 PM Note Text: POPULATION HEALTH NAVIGATION OUTREACH Action/I LVM ANNUAL MEDICARE WELLNESS COLORECTAL CANCER SCREENING Never done INFLUENZA(1) Never done MYCHART ACTIVATION Pt identified by name and : NO NO Outreach Outcome/Action Unable to reach patient: Left message Did you use a PCP flex slot to schedule this appointment? N/A Reason for Outreach Care Gap or Scheduling/Wellness visits Payer: Payor: MMO / Plan: MMO MEDICARE SUPPLEMENT / Product Type: Indemnity / Care Gap Reviewed:: Annual Wellness visit Colorectal Cancer Screening Flu Vaccine Reminder: Reminder note to check Health Maintenance for items below Health Maintenance items due: DTAP,TDAP,TD(1 - Tdap) Never done COLORECTAL CANCER SCREENING Never done SHINGRIX VACCINE(1 of 2) Never done PNEUMOCOCCAL: 65+(1 - PCV) Never done COVID-19 VACCINE(3 - Booster for Moderna series) due on 03/10/2021 DIABETES SCREEN due on 02/01/2022 INFLUENZA(1) Never done ADVANCE DIRECTIVE DISCUSSION Never done DEPRESSION ASSESSMENT Never done Navigation Signature: Margarita Hackett MA November 11, 2022 1:15 PM [facility] 11-11-2022 Note Patient Outreach (NE TNAV) CHEIKH SIMPSON ([id number]) 1955 M DEF Date Time Provider Department 11/11/22 MARGARITA HACKETT NETNAV During your visit today, we recorded the following information about you: Margarita Hackett MA 11/11/2022 4:25 PM Signed POPULATION HEALTH NAVIGATION OUTREACH Action/FYI [facility] ANNUAL MEDICARE WELLNESS COLORECTAL CANCER SCREENING Never done INFLUENZA(1) Never done MYCHART ACTIVATION Pt identified by name and : NO NO Outreach Outcome/Action Unable to reach patient: Left message Did you use a PCP flex slot to schedule this appointment? N/A Reason for Outreach Care Gap or Scheduling/Wellness visits Payer: Payor: MMO / Plan: MMO MEDICARE SUPPLEMENT / Product Type: Indemnity / Care Gap Reviewed:: Annual Wellness visit Colorectal Cancer Screening Flu Vaccine Reminder: Reminder note to check Health Maintenance for items below Health Maintenance items due: DTAP,TDAP,TD(1 - Tdap) Never done COLORECTAL CANCER SCREENING Never done SHINGRIX VACCINE(1 of 2) Never done PNEUMOCOCCAL: 65+(1 - PCV) Never done COVID-19 VACCINE(3 - Booster for Moderna series) due on 03/10/2021 DIABETES SCREEN due on 02/01/2022 INFLUENZA(1) Never done ADVANCE DIRECTIVE DISCUSSION Never done DEPRESSION ASSESSMENT Never done Navigation Signature: Margarita Hackett MA November 11, 2022 1:15 PM Allergies As of Date: 11/11/2022 (No Known Allergies) Date Reviewed: 02/01/2019 Reviewed by: Jovita Xavier LPN - Fully Assessed Reason for Visit: Population Health Navigation Outreach [3910] Cmt: ACO CHELO PCSA Prescriptions as of 11/11/2022 - dorzolamide-timolol (COSOPT) 22.3-6.8 mg/mL ophthalmic solution INSTILL 1 DROP INTO BOTH EYES EVERY 12 HOURS Problem List As Of Date 11/11/2022 Noted Resolved BPH w Urinary Obs/LUTS [N40.1, N13.8] 10/28/2009 Hard of hearing [H91.90] 02/01/2019 Other specified glaucoma [H40.89] 02/01/2019 Macular degeneration [H35.30] 02/01/2019 Encounter Status:Closed by MARGARITA HACKETT on 11/11/22 [facility] 11-11-2022 History of Present illness Narrative POPULATION HEALTH NAVIGATION OUTREACH Action/FYI [facility] ANNUAL MEDICARE WELLNESS COLORECTAL CANCER SCREENING Never done INFLUENZA(1) Never done MYCHART ACTIVATION Pt identified by name and : NO NO Outreach Outcome/Action Unable to reach patient: Left message Did you use a PCP flex slot to schedule this appointment? N/A Reason for Outreach Care Gap or Scheduling/Wellness visits Payer: Payor: MMO / Plan: MMO MEDICARE SUPPLEMENT / Product Type: Indemnity / Care Gap Reviewed:: Annual Wellness visit Colorectal Cancer Screening Flu Vaccine Reminder: Reminder note to check Health Maintenance for items below Health Maintenance items due: DTAP,TDAP,TD(1 - Tdap) Never done COLORECTAL CANCER SCREENING Never done SHINGRIX VACCINE(1 of 2) Never done PNEUMOCOCCAL: 65+(1 - PCV) Never done COVID-19 VACCINE(3 - Booster for Moderna series) due on 03/10/2021 DIABETES SCREEN due on 02/01/2022 INFLUENZA(1) Never done ADVANCE DIRECTIVE DISCUSSION Never done DEPRESSION ASSESSMENT Never done Navigation Signature: Margarita Hackett MA November 11, 2022 1:15 PM documented in this encounter [facility] 09-06-2022 History of Present illness Narrative POPULATION HEALTH NAVIGATION OUTREACH Action/I September 06, 2022 12:55 PM HCC Gaps complete at this time/ 0 REE with Reagan Oconnor MD was 4.30.2020 Care Gaps due: ~Colorectal Cancer Screening ~Influenza Outcome: LM on voicemail for patients sister Richelle to return call, thank you Pt identified by name and : NO Outreach Outcome/Action Unable to reach patient: Left message Did you use a PCP flex slot to schedule this appointment? N/A Reason for Outreach HCC or suspected condition Payer: Payor: MMO / Plan: MMO MEDICARE SUPPLEMENT / Product Type: Indemnity / Care Gap Reviewed:: Annual Wellness visit Colorectal Cancer Screening Flu vaccine Reminder: Reminder note to check Health Maintenance for items below Health Maintenance items due: DTAP,TDAP,TD(1 - Tdap) Never done COLORECTAL CANCER SCREENING Never done SHINGRIX VACCINE(1 of 2) Never done PNEUMOCOCCAL: 65+(1 - PCV) Never done COVID-19 VACCINE(3 - Booster for Moderna series) due on 03/10/2021 ADVANCE DIRECTIVE DISCUSSION Never done DEPRESSION ASSESSMENT Never done DIABETES SCREEN due on 02/01/2022 INFLUENZA(1) Never done Message Sent to Practice: No Navigation Signature: Aleah Sena MA September 06, 2022 12:55 PM documented in this encounter [facility] 05-03-2022 History of Present illness Narrative POPULATION HEALTH NAVIGATION OUTREACH Action/ I left a voice message re: annual pcp visit, colorectal cancer screen Pt identified by name and : NO Outreach Outcome/Action Unable to reach patient: Left message Letter mailed Did you use a PCP flex slot to schedule this appointment? N/A Reason for Outreach HCC or suspected condition Payer: Payor: MMO / Plan: MMO MEDICARE SUPPLEMENT / Product Type: Indemnity / Care Gap Reviewed:: Annual Wellness visit Colorectal Cancer Screening Reminder: Reminder note to check Health Maintenance for items below Health Maintenance items due: DEPRESSION SCREENING Never done DTAP,TDAP,TD(1 - Tdap) Never done COLORECTAL CANCER SCREENING Never done SHINGRIX VACCINE(1 of 2) Never done PNEUMOCOCCAL: 65+(1 - PCV) Never done COVID-19 VACCINE(3 - Booster for Moderna series) due on 06/15/2021 ADVANCE DIRECTIVE DISCUSSION Never done DIABETES SCREEN due on 02/01/2022 Message Sent to Practice: No Navigation Signature: Jackie Ceron Population Health Navigator May 03, 2022 2:12 PM documented in this encounter [facility] 01-18-2022 History of Present illness Narrative POPULATION HEALTH NAVIGATION OUTREACH Action/FYI lvm Health Maintenance items due: ANNUAL MEDICARE WELLNESS EXAM COLORECTAL CANCER SCREENING Never done INFLUENZA(1) Never done ADVANCE DIRECTIVE DISCUSSION Never done Pt identified by name and : NO Outreach Outcome/Action Unable to reach patient: Left message Reason for Outreach Care Gap or Scheduling/Wellness visits Payer: Payor: MMO / Plan: MMO MEDICARE SUPPLEMENT / Product Type: Indemnity / Care Gap Reviewed:: Annual Wellness visit Colorectal Cancer Screening Flu vaccine Reminder: Reminder note to check Health Maintenance for items below Health Maintenance items due: DEPRESSION SCREENING Never done DTAP,TDAP,TD(1 - Tdap) Never done COLORECTAL CANCER SCREENING Never done SHINGRIX VACCINE(1 of 2) Never done PNEUMOVAX AGE 65 AND OVER WITH 5YR LOOKBACK(1) Never done COVID-19 VACCINE(3 - Booster for Moderna series) due on 06/15/2021 INFLUENZA(1) Never done ADVANCE DIRECTIVE DISCUSSION Never done DIABETES SCREEN due on 02/01/2022 Message Sent to Practice: No Navigation Signature: Margarita Hackett MA January 18, 2022 10:41 AM documented in this encounter [facility] Summary Purpose Family History No Family History Records FoundNo Family History Records FoundNo Family History Records FoundNo Family History Records FoundNo Family History Records FoundNo Family History Records Found Advance Directives Documents on File Type Date Recorded Patient Regional Coordinator Expl anation Advance Directive(s) 11/20/2009 8:48 PM Hospital Course Note [facility] [address] [place] [id number] HEALTH INFORMATION MANAGEMENT DISCHARGE SUMMARY : [id number] Signed Patient: CHEIKH SIMPSON Acct:[id number] M RUN: [id number] : 1955 Sex: M Loc: [facility] ADM Date: Room/Bed: DISC Date: 04/22/20 DATE:04/22/2020 HOSPITAL COURSE: The patient entered the hospital on 04/22 with dense cataract of the left eye. He underwent a phacoemulsification procedure, placement of posterior chamber intraocular lens, no complication, discharged in good condition. Only homegoing instructions were to take a Diamox Sequels that evening. He was also instructed to resume his regular and p.r.n. medications. He was also instructed to leave the patch and shield in place. As stated above, he tolerated the procedure well. No complications. Discharged in good condition and will be seen in office in 24 hours for followup. (more content not included)... Note [facility] [address] [place] [address] HEALTH INFORMATION MANAGEMENT OPERATIVE REPORT : [id number] Signed Patient: CHEIKH SIMPSON Acct:[id number] M RUN: [id number] : 1955 Sex: M Loc: [facility] ADM Date: Room/Bed: DISC Date: 04/22/20 DATE:04/22/2020 PREOPERATIVE DIAGNOSIS: Cataract, left eye. POSTOPERATIVE DIAGNOSIS: Cataract, left eye. OPERATION: Phacoemulsification of left eye with placement of posterior chamber intraocular lens. ANESTHESIA: MAC. ASSISTANTS: None. COMPLICATIONS: None. INDICATIONS FOR PROCEDURE: This patient has a dense nuclear sclerotic cataract with posterior subcapsular cataract formation of the left eye. His best visual acuity is 20/400. The macula demonstrates no pathology. There is no other retinopathy. He is having difficulty with reading. I expect significant improvement following the surgery. DESCRIPTION OF PROCEDURE: (more content not included)... Procedure Findings Note [facility] [address] [place] [id number] HEALTH INFORMATION MANAGEMENT OPERATIVE REPORT : [id number] Signed Patient: CHEIKH SIMPSON Acct:[id number] M RUN: [id number] : 1955 Sex: M Loc: [facility] ADM Date: Room/Bed: DISC Date: 04/22/20 DATE:04/22/2020 PREOPERATIVE DIAGNOSIS: Cataract, left eye. POSTOPERATIVE DIAGNOSIS: Cataract, left eye. OPERATION: Phacoemulsification of left eye with placement of posterior chamber intraocular lens. ANESTHESIA: MAC. ASSISTANTS: None. COMPLICATIONS: None. INDICATIONS FOR PROCEDURE: This patient has a dense nuclear sclerotic cataract with posterior subcapsular cataract formation of the left eye. His best visual acuity is 20/400. The macula demonstrates no pathology. There is no other retinopathy. He is having difficulty with reading. I expect significant improvement following the surgery. DESCRIPTION OF PROCEDURE: (more content not included)... Additional Source Comments (unrecognized sect ion and content) No Status Records FoundNo Status Records FoundNo Status Records FoundNo Status Records FoundNo Status Records FoundNo Status Records Found INFORMATION SOURCE (unrecogn ized section and content) DATE CREATED AUTHOR AUTHOR'S ORGANIZ ATION 05/17/2020 [facility] DATE CREATED AUTHOR AUTHOR'S ORGANIZ ATION 03/08/2021 [facility] DATE CREATED AUTHOR AUTHOR'S ORGANIZ ATION 05/08/2021 [facility] DATE CREATED AUTHOR AUTHOR'S ORGANIZ ATION 05/05/2023 [facility] DATE CREATED AUTHOR AUTHOR'S ORGANIZ ATION 09/21/2023 [facility] Source Comments (unrecognize d section and content) In the event this informatio n is protected by the Federal Confidentiality of Alcohol and Drug Abuse Patient Records regulations: The Federal rules restrict any use of the information to criminally investigate or prosecute any alcohol or drug abuse patient.[facility] the event this information is protected by the Federal Confidentiality of Alcohol and Drug Abuse Patient Records regulations: The Federal rules restrict any use of the information to criminally investigate or prosecute any alcohol or drug abuse patient.[facility] the event this information is protected by the Federal Confidentiality of Alcohol and Drug Abuse Patient Records regulations: The Federal rules restrict any use of the information to criminally investigate or prosecute any alcohol or drug abuse patient.[facility] the event this information is protected by the Federal Confidentiality of Alcohol and Drug Abuse Patient Records regulations: The Federal rules restrict any use of the information to criminally investigate or prosecute any alcohol or drug abuse patient.[facility] the event this information is protected by the Federal Confidentiality of Alcohol and Drug Abuse Patient Records regulations: The Federal rules restrict any use of the information to criminally investigate or prosecute any alcohol or drug abuse patient.[facility] the event this information is protected by the Federal Confidentiality of Alcohol and Drug Abuse Patient Records regulations: The Federal rules restrict any use of the information to criminally investigate or prosecute any alcohol or drug abuse patient.[facility] the event this information is protected by the Federal Confidentiality of Alcohol and Drug Abuse Patient Records regulations: The Federal rules restrict any use of the information to criminally investigate or prosecute any alcohol or drug abuse patient.[facility] the event this information is protected by the Federal Confidentiality of Alcohol and Drug Abuse Patient Records regulations: The Federal rules restrict any use of the information to criminally investigate or prosecute any alcohol or drug abuse patient.[facility] Reason for Visit (unrecogniz ed section and content) Reason Onset Date Comments Population Health Navigation Outreach 05/03/2022 HCC CARE GAP Reason Onset Date Comments Population Health Navigation Outreach 09/06/2022 HCC Gap Outreach Reason Onset Date Comments Population Health Navigation Outreach 11/11/2022 [facility] Reason Onset Date Comments Population Health Navigation Outreach 01/11/2023 [facility] Reason Onset Date Comments Population Health Navigation Outreach 02/17/2023 HCC GAP Reason Onset Date Comments Population Health Navigation Outreach 04/28/2023 [facility] Reason Onset Date Comments Population Health Navigation Outreach 08/23/2023 ACO CARE GAP Care Teams (unrecognized sec tion and content) [employer] Setter Relationship Specialty Start Date End Date Reagan Oconnor MD [address] [place], [place] [id number] PCP - General Family Practice 02/01/19 [employer]ter Relationship Specialty Start Date End Date Reagan Oconnor MD [address] [place], [place] [id number] PCP - General Family Medicine 02/01/19 Punch Press Setter Relationship Specialty Start Date End Date Reagan Oconnor MD [address] [place] [address] PCP - General Family Medicine 02/01/19 FOR RECORDS PERTAINING TO PATIENTS WHO ARE OR HAVE BEEN ENROLLED IN A CHEMICAL DEPENDENCY/SUBSTANCEABUSE PROGRAM, SOME INFORMATION MAY BE OMITTED. This clinical summary was aggregated from multiple sources. Caution should be exercised in using it in the provision of clinical care. This summary normalizes information from multiple sources, and as a consequence, information in this document may materially change the coding, format and clinical context of patient data. In addition, data may be omitted in some cases. CLINICAL DECISIONS SHOULD BE BASED ON THE PRIMARY CLINICAL RECORDS. [facility]. provides no warranty or guarantee of the accuracy or completeness of information in this document.
[2023-12-07 17:21] LABS: Hemoglobin A1c 5.5 % (3.8-5.6)
[2023-12-12 16:09] LABS: Albumin 3.9 g/dL (2.9-4.4); Alpha-1-Globulins 0.3 g/dL (0.0-0.4); Alpha-2-Globulins 0.8 g/dL (0.4-1.0); Gamma Globulin 1.4 g/dL (0.4-1.8); IMMUNOFIXATION RESULT,S Comment: (.); Immunoglobulin A 332 mg/dL (61-437); Immunoglobulin G 1579 mg/dL (603-1613); Immunoglobulin M 97 mg/dL (20-172); PROEL- TOTAL PROTEIN 7.5 g/dL (6.0-8.5)
== END | disposition home or self-care (01) ==
PROVIDERS: PCP Internal Medicine; Referring Provider Psychiatry & Neurology Neurology; Visit Provider Psychiatry & Neurology Neurology
DX: G62.9 Polyneuropathy, unspecified (principal); R73.9 Hyperglycemia, unspecified
CPT/HCPCS: 36415; 82784; 83036; 84165; 86334; 86335

== ENCOUNTER → 2024-01-26 | Outpatient (CLI) | payer MEDICARE, OTHER, SELFPAY ==
[2024-01-30 15:08] LABS: PSA, Total 0.7 ng/mL (0.0-4.0)
== END | disposition home or self-care (01) ==
LOC: MTLAB 13:15
PROVIDERS: PCP Internal Medicine; Referring Provider Psychiatry & Neurology Neurology; Visit Provider Psychiatry & Neurology Neurology
DX: R35.0 Frequency of micturition (principal)
CPT/HCPCS: 36415; 84153

== ENCOUNTER → 2024-03-20 | Outpatient (CLI) | payer MEDICARE, OTHER, SELFPAY ==
[2024-03-20 13:21] LABS: Bacteria 0 SEEN /hpf (None Seen); Mucous, Urine 0 SEEN /hpf (<or=2+); Red Blood Cells-Urine 0 SEEN /hpf (0-5); Squamous Epithelial Cells - UA 0 SEEN /hpf (0-5); White Blood Cells 0 SEEN /hpf (0-5)
[2024-03-20 15:26] LABS: Color, Urine Yellow (Yellow); Glucose, Dipstick Normal (Normal); Ketone-Dipstick Negative (Negative); Leukocyte Esterase-Dipstick Negative /ul (Negative); Nitrite-Dipstick Negative (Negative); Occult Blood-Urine Negative /ul (Negative); Protein-Dipstick Negative (Negative); Urine Bilirubin Dipstick Negative (Negative); Urine Clarity Clear (Clear); Urine Urobilinogen Normal (Normal); Urine pH 6.5 (5.0 - 8.0)
== END | disposition home or self-care (01) ==
LOC: LABSPEC 13:06
PROVIDERS: PCP Family Medicine; Visit Provider Family Medicine
DX: R33.9 Retention of urine, unspecified (principal)
CPT/HCPCS: 81001

== ENCOUNTER → 2024-07-24 | Outpatient (CLI) | payer MEDICARE, OTHER, SELFPAY ==
[2024-07-26 15:09] LABS: Albumin 3.5 g/dL (2.9-4.4); Alpha-1-Globulins 0.3 g/dL (0.0-0.4); Alpha-2-Globulins 0.7 g/dL (0.4-1.0); Gamma Globulin 1.4 g/dL (0.4-1.8); Immunoglobulin A 327 mg/dL (61-437); Immunoglobulin G 1447 mg/dL (603-1613); Immunoglobulin M 102 mg/dL (20-172)
== END | disposition home or self-care (01) ==
LOC: MTLAB 13:39
PROVIDERS: PCP Family Medicine; Referring Provider Psychiatry & Neurology Neurology; Visit Provider Psychiatry & Neurology Neurology
DX: G62.9 Polyneuropathy, unspecified (principal)
CPT/HCPCS: 36415; 82784; 84165; 86334

== ENCOUNTER 2025-01-15 11:44 | Observation (INO) | payer MEDICARE, OTHER, SELFPAY ==
[2025-01-15] VITALS (8 sets, daily range): BP systolic 81–171; BP diastolic 39–89; PULSE 69–98; RESP 11–18; TEMP 35.6–36.6; O2SAT 95–98; BMI 47.9; BMI 46.6
--- NOTE | 2025-01-15 12:13 | CT_ITS ---
EXAM: CT Abdomen, Pelvis and Lumbar Spine With Intravenous Contrast CLINICAL INDICATION: ABDOMINAL PAIN, BACK PAIN TECHNIQUE: Axial computed tomography images of the abdomen, pelvis and lumbar spine with intravenous contrast. This CT exam was performed using one or more of the following dose reduction techniques: automated exposure control, adjustment of the mA and/or kV according to patient size, and/or use of iterative reconstruction technique. COMPARISON: No relevant prior studies available. FINDINGS: LUNG BASES: Unremarkable. No mass. No consolidation. ABDOMEN: LIVER: Hepatomegaly with fatty infiltration. Hepatic cysts. GALLBLADDER AND BILE DUCTS: Unremarkable. No calcified stones. No ductal dilation. PANCREAS: Unremarkable. No mass. No ductal dilation. SPLEEN: Unremarkable. No splenomegaly. ADRENALS: Unremarkable. No mass. KIDNEYS AND URETERS: 3.4 cm right renal cyst. No hydronephrosis. STOMACH AND BOWEL: Fecal retention in the colon consistent with constipation. Colonic diverticulosis without acute diverticulitis. No obstruction. PELVIS: APPENDIX: No findings to suggest acute appendicitis. BLADDER: Unremarkable. No mass. REPRODUCTIVE: Unremarkable as visualized. LUMBAR SPINE: VERTEBRAE: Unremarkable. No acute fracture. DISCS/SPINAL CANAL/NEURAL FORAMINA: No acute findings. No significant spinal canal stenosis. ABDOMEN and PELVIS: INTRAPERITONEAL SPACE: Unremarkable. No free air. No significant fluid collection. BONES/JOINTS: No acute fracture. No dislocation. SOFT TISSUES: Umbilical hernia containing fat. Bilateral inguinal hernias. VASCULATURE: Unremarkable. No abdominal aortic aneurysm. LYMPH NODES: Unremarkable. No enlarged lymph nodes. CT/Abdomen/Pelvis W IV Cont ONLY IMPRESSION: 1. Hepatomegaly with fatty infiltration. 2. Umbilical hernia containing fat. 3. Fecal retention in the colon consistent with constipation. 4. Bilateral inguinal hernias. 5. Colonic diverticulosis without acute diverticulitis. Reading Location: [facility]
--- NOTE | 2025-01-15 12:15 | EDS_ITS ---
HPI History of Present Illness Chief Complaint: Constipation Detail of Chief Complaint: Back pain and constipation Informant: patient and family Narrative Narrative: Patient brought to the emergency department via EMS from home with complaint of back pain and constipation. Patient has history of chronic back pain issues. He had remote history of a laminectomy. His sister helps care for him and states that she had a many emergency department at [facility] twice in the last couple weeks. Initially had a CAT scan that showed some constipation. He was discharged home with MiraLAX. She brought him back because of continued pain in his back and no bowel movement. He subsequently got admitted. Until he had an MRI of his back and had his pain treated. He was discharged home on 07 January. Since that time he is having stools but they have been watery. Still complaining of back pain and left lower abdomen pain. Has had no fever. Denies urinary symptoms. Patient very hard of hearing and some of the history comes f rom the patient's sister. Patient had a appointment with primary care physician today but could not get patient in the car so she called EMS as she was instructed to bring him to the emergency department. Patient's sister feels that patient needs admitted and possibly needs rehab. [facility] Medical History Fatty liver Parkinson disease Detached retina Skin cancer Hearing loss Glaucoma Cataract Back problem Seasonal allergies Home Medications ?Medication ?Instructions ?Recorded ?Last Taken ?Type dorzolamide 22.3 mg-timolol 6.8 1 drp ophthalmic (eye) BID 03/20/24 01/15/25 History mg/mL eye drops psyllium husk 3.4 gram/5.4 gram 1 tbsp PO DAILY Unknown History oral powder (Metamucil) carbidopa 25 mg-levodopa 100 mg 1 tab PO TID #90 tabs 07/24/24 01/15/25 Rx tablet tamsulosin 0.4 mg capsule 0.4 mg PO QHS #90 caps 12/1101/14/25 Rx ascorbic acid 1,000 1 ea PO DAILY 01/15/2501/15 History of-sliadfcahpcb-bugaeygy powder effervescent pack (Emergen-C) cyclobenzaprine 10 mg tablet 10 mg PO TID PRN muscle s pasm 01/15/25 01/15/25 History ibuprofen 200 mg tablet (Addaprin) 400 mg PO Q8H PRN f ever or pain 01/15/25 01/15/25 History polyethylene glycol 3350 17 8.5 g PO DAILY PRN constip ation 01/15/25 01/11/25 History gram/dose oral powder (ClearLax) Allergy/AdvReac Type Severity Reaction Status Date / Time No Known Allergies Allergy Verified 01/15/25 11:46 Family History Mother Anemia Angina at rest Arthritis Heart disease Diabetes Myocardial infarction Hypertension Kidney disease High cholesterol Age related osteoporosis CVA (cerebral vascular accident) Cancer kidney Father Arthritis Skin cancer Pulmonary hypertension Surgical History Hx of cataract removal with insertion of prosthetic lens History of back surgery History of knee replacement Social History household members: none housing: house current occupational status: retired current occupation: farming Smoking Status: Never smoker alcohol intake: never substance use type: does not use what type of physical activity do you participate in: none seatbelt use: always do you feel safe at home: Yes ROS ROS ED Review of Systems ROS Unobtainable: other Constitutional Constitutional ED: Reports lethargy; Denies chills, fever(s), sweats or weight loss Eyes Eyes: Denies blurry vision, change in vision or diplopia ENT ENT ED: Denies rhinorrhea or sore throat Cardiovascular Cardiovascular: Denies chest pain, orthopnea or racing heartbeat Respiratory/Chest Respiratory/Chest: Denies cough, dyspnea, dyspnea on exertion, orthopnea or sputum Gastrointestinal Gastrointestinal: Reports abdominal pain, constipation and diarrhea; Denies nausea or vomiting Genitourinary Genitourinary ED: Denies dysuria, hematuria or urinary frequency Musculoskeletal Musculoskeletal: Reports back pain; Denies arthralgias, myalgias or neck pain Integumentary Denies abscess, Abrasions or rash Neurologic Neurologic: Denies headache(s) or weakness Psychiatric Psychiatric: Denies anxiety, depression or suicidal thoughts Endocrine Endocrinology: Denies polydipsia, polyphagia or polyuria Hematologic/Lymphatic Hematologic/Lymphatic: Denies easy bleeding, easy bruising or lymphadenopathy Allergic/Immunologic Allergic/Immunologic ED: Denies mouth swelling, tongue swelling or urticaria EXAM Physical Exam Const Vital Signs: 01/15/25 11:45 01/15/25 11:45 01/15/25 12:09 Temperature 96.1 F L Temperature Source Temporal Pulse Rate 73 71 71 Respiratory Rate 14 12 18 Blood Pressure 81/59 L 88/39 L 144/78 H Blood Pressure Mean 66 55 100 Pulse Ox 95 96 96 Oxygen Delivery Method Room Air Room Air 01/15/25 13:00 01/15/25 14:00 01/15/25 14:07 Temperature 98 F Temperature Source Pulse Rate 98 69 69 Respiratory Rate 16 14 14 Blood Pressure 144/89 H 133/86 H 133/86 H Blood Pressure Mean 107 101 101 Pulse Ox 98 96 96 Oxygen Delivery Method 01/15/25 15:00 Temperature Temperature Source Pulse Rate 73 Respiratory Rate 11 L Blood Pressure 129/77 H Blood Pressure Mean 91 Pulse Ox 95 Oxygen Delivery Method Positive well nourished and well developed General Appearance ED: well developed and NAD HEENT Reports TM's clear and moist mucous membranes normocephalic and atraumatic; Negative for trauma or tenderness Tympanic Membrane ED: Yes TM's clear Eyes PERRL and EOMs intact bilaterally General Eye ED: Negative for pale conjunctiva or scleral icterus Neck no lymphadenopathy, supple and no JVD General: Negative for tenderness Chest Wall inspection of chest normal and palpation of chest normal Chest: Negative for tenderness Resp normal respiratory effort and clear to auscultation bilaterally Effort and Inspection: Negative for respiratory distress or pain with movement Auscultation: Negative for rhonchi, wheezes or diminished lung sounds Cardio regular rate, regular rhythm, S1 normal heart sound, S2 normal heart sound and no murmurs Peripheral Pulses: pulses 2+ throughout GI normal to inspection, nondistended, normoactive bowel sounds, soft to palpation, non-distended and no masses GI Narrative: Tenderness to palpation over left lower quadrant similar guarding. There is no rebound, rigidity, or cranial signs. No masses palpated. Rectal exam performed had brown stool that was soft in the rectal vault. Did not appreciate an impaction Back/Spine no CVA tenderness and no thoracic nor lumbar tenderness Extremity normal to inspection General Extremety ED: Negative for edema General Extremity: Negative for edema Neuro oriented x3, CN's II-XII intact bilaterally, no sensory deficits noted and gait normal Sensorium / Orientation: awake, alert, oriented to person, oriented to place and oriented to time Motor Exam: strength 5/5 throughout and strength abnormal Psych mental status grossly normal Skin no rashes or lesions noted and no wounds MDM MDM MDM Narrative Medical decision making narrative: Patient presents with generalized weakness and back pain as well as abdominal pain. He has history of Parkinson's. His daughter is having a hard time caring for him and feels like he may need admission for rehab. He has chronic back pain issues. He had an MRI recently. CBC with differential, 6.6 with hemoglobin 15 and platelet count 176. Chemistries unremarkable. BUN tenogram 13. LFTs unremarkable. Urinalysis was normal. I did review his MRI from other facility dated 01/07/2025 showed multilevel degenerative changes resulting in varying degree of spinal canal and foraminal narrowing findings most significant at L5-S1 this area had circumferential disc bulge and ligamentum flavum hypertrophy contributing to severe bilateral neuroforaminal narrowing. There is superimposed right paracentral disc protrusion cannot contacting the S1 nerve in the right subarticular zone. Case discussed with hospitalist will evaluate patient for admission Lab Data Attestation: I reviewed the patient's lab results. Labs: Laboratory Results - last 24 hr 01/15/25 01/15/25 12:39 13:24 WBC 6.6 RBC 4.83 Hgb 15.0 Hct 42.9 MCV 88.8 MCH 31.1 MCHC 35.0 RDW Std Deviation 43.3 RDW Coeff of Shayan 13.4 Plt Count 176 MPV 11.2 Immature Gran % (Auto) 0.200 Neut % (Auto) 61.6 Lymph % (Auto) 24.8 [place] % (Auto) 10.7 H Eos % (Auto) 1.8 Baso % (Auto) 0.9 Absolute Neuts (auto) 4.1 Absolute Lymphs (auto) 1.64 Nucleated RBC % 0 Sodium 140 Potassium 4.3 Chloride 106 Carbon Dioxide 24.0 Anion Gap 10 BUN 13 Creatinine 0.72 Estim Creat Clear Calc 136.53 Est GFR (MDRD) Non-Af 99 BUN/Creatinine Ratio 18.1 Glucose 100 H Lactic Acid < 1.0 Calcium 8.9 Total Bilirubin 0.59 AST 44 H ALT 10 Alkaline Phosphatase 62 Total Protein 7.5 Albumin 4.2 Globulin 3.3 Albumin/Globulin Ratio 1.3 Urine Color Yellow Urine Clarity Clear Urine pH 6.0 Ur Specific [place] 1.010 Urine Protein Negative Urine Glucose (UA) Normal Urine Ketones Negative Urine Occult Blood Negative Urine Nitrite Negative Urine Bilirubin Negative Urine Urobilinogen Normal Ur Leukocyte Esterase Negative Urine RBC 0 SEEN Urine WBC 0 SEEN Ur Squamous Epith Cells 0 SEEN Urine Bacteria 0 SEEN Urine Mucus 0 SEEN Radiography Diagnostic Testing: Clinical Impression(s) from Imaging Studies Abdomen/Pelvis CT 01/15/25 12:13 IMPRESSION: 1. Hepatomegaly with fatty infiltration. 2. Umbilical hernia containing fat. 3. Fecal retention in the colon consistent with constipation. 4. Bilateral inguinal hernias. 5. Colonic diverticulosis without acute diverticulitis. Reading [facility] Discharge Plan Dx/Rx/DC Orders Clinical Impression: Back pain, Adult failure to thrive, Weakness, Constipation Disposition Disposition: Acute Care [facility]
--- NOTE | 2025-01-15 12:20 | PCA ---
NIALL KEENE WAS CALLED @ 6138 TO GET THE IMAGES AND DC SUMMARY SENT OVER TO US.
[2025-01-15] MEDS: 0.9% Normal Saline (1000mL) 1,000 ML 1000 ML IV (12:35)
[2025-01-15 12:49] LABS: Absolute Lymphocyte Count 1.64 X10^3/uL (0.83-4.51); Absolute Neutrophil Count 4.1 X10^3/uL (2.0-7.7); Basophil# 0.06 X10^3/uL; Basophil% 0.9 % (0-1); Eosinophil# 0.12 X10^3/uL; Eosinophils% 1.8 % (0-5); Hematocrit 42.9 % (40-54); Lymphocyte # 1.64 X10^3/ul (0.83-4.51); Lymphocyte % 24.8 % (19-41); Mean Corpuscular Hgb 31.1 pg (27.0-32.0); Mean Corpuscular Volume 88.8 fL (80-94); Mean Platelet Vol. 11.2 fl (6.2-12.0); Monocyte# 0.71 X10^3/uL; Monocyte% 10.7 % (0-10); NRBC Flagged by Analyzer 0 % (0-5); Neutrophil # 4.08 X10^3/uL (2.7-7.7); Neutrophil % 61.6 % (47-70); Platelet Count 176 K/mm3 (150-450); RBC Distribution Width CV 13.4 % (11.6-14.6); RBC Distribution Width SD 43.3 fl (35.1-43.9); Red Blood Count 4.83 M/mm3 (4.6-6.2); White Blood Count 6.6 K/mm3 (4.4-11.0)
[2025-01-15 13:14] LABS: ALB/GLOB Ratio 1.3 RATIO (0.9-2.4); AST(SGOT) 44 U/L (<=37); Alanine Aminotransfer ALT/SGPT 10 U/L (<=46); Albumin, Serum 4.2 g/dL (3.4-4.8); Alkaline Phosphatase 62 U/L (40-129); Anion Gap 10 (5-15); BUN 13 mg/dL (4-19); BUN/Creat Ratio 18.1 RATIO (10-20); Calcium,Total 8.9 mg/dL (7.6-11.0); Chloride 106 mmol/L (98-108); Creatinine, Serum 0.72 mg/dL (0.70-1.20); EST Glomerular Filtration Rate 99 (>60); Estimated Creatinine Clearance 136.53 ml/min (50-250); Globulin 3.3 g/dL (2.2-4.2); Glucose 100 mg/dL (70-99); Potassium 4.3 mmol/L (3.3-5.1); Protein, Total 7.5 g/dL (5.9-8.4); Sodium Level 140 mmol/L (133-145); Total Bilirubin 0.59 mg/dL (0.00-1.30)
[2025-01-15 13:24] LABS: Lactic Acid < 1.0 mmol/L (0.0-2.0)
[2025-01-15 13:26] LABS: Bacteria 0 SEEN /hpf (None Seen); Mucous, Urine 0 SEEN /hpf (<or=2+); Squamous Epithelial Cells - UA 0 SEEN /hpf (0-5); White Blood Cells 0 SEEN /hpf (0-5)
[2025-01-15 13:28] LABS: Color, Urine Yellow (Yellow); Glucose, Dipstick Normal (Normal); Ketone-Dipstick Negative (Negative); Leukocyte Esterase-Dipstick Negative /ul (Negative); Nitrite-Dipstick Negative (Negative); Occult Blood-Urine Negative /ul (Negative); Protein-Dipstick Negative (Negative); Urine Bilirubin Dipstick Negative (Negative); Urine Clarity Clear (Clear); Urine Urobilinogen Normal (Normal)
[2025-01-15 14:10] LABS: Red Blood Cells-Urine 0 SEEN /hpf (0-5)
--- NOTE | 2025-01-15 15:40 | PCM.HP.STD ---
HPI - General General Date of Admission: 01/15/25 Date of Service: 01/15/25 Chief Complaint: Severe constipation and back pain with inability to care for self HPI Narrative CHEIKH SIMPSON, is a 69-year-old male history of Parkinson's disease, BPH, chronic back pain, constipation presented to [facility] ED 01/15/2025 with complaints of back pain, constipation and failure to thrive with difficulty with ADLs. Patient has had problems with back pain and constipation and was seen twice in [place] ED, the first time he was given MiraLAX sent home the second time he was admitted had an MRI of his back which showed nothing acute but did have multiple levels of degenerative changes as well as spinal stenosis at L5-S1, ultimately was discharged home but today he had a follow-up with his primary care physician and family member could not even get him to the car and there was concern from caring for himself at home so he was brought to the ED. In the ED CT showed constipation but workup otherwise negative, due to patient's inability to care for self at home hospitalist contacted for admission. Patient evaluated with family member at bedside who helps with a lot of his care and provided almost all of the history as patient is hard of hearing, also somewhat difficulty understanding patient's words with his Parkinson's. Reportedly patient has had a rough month, he has intermittently had problems with his back where will flare and then improved over the past month he will have a couple of days where he can barely walk on a couple of days which are better, this seems to be correlated with the pain in his abdomen and he was admitted to [place] twice and she reports he was just given MiraLAX and has had very loose watery stool but has not been having any actual formed stool output, CT did confirm that patient still has significant stool burden. Pain in back does not go down the legs and more radiates towards his stomach, he denied any other new or acute complaints and there is no nausea [facility] Medical History Fatty liver Parkinson disease Detached retina Skin cancer Hearing loss Glaucoma Cataract Back problem Seasonal allergies Home Medications ?Medication ?Instructions ?Recorded ?Last Taken ?Type dorzolamide 22.3 mg-timolol 6.8 1 drp ophthalmic (eye) BID 03/20/24 01/15/25 History mg/mL eye drops psyllium husk 3.4 gram/5.4 gram 1 tbsp PO DAILY 03/20/24 Unknown History oral powder (Metamucil) carbidopa 25 mg-levodopa 100 mg 1 tab PO TID #90 tabs 07/24/24 01/15/25 Rx tablet tamsulosin 0.4 mg capsule 0.4 mg PO QHS #90 caps 12/11/24 01/14/25 Rx ascorbic acid 1,000 1 ea PO DAILY 01/15/25 01/15/25 History jj-pucdqfrnzbfk-hfmykuiw powder effervescent pack (Emergen-C) cyclobenzaprine 10 mg tablet 10 mg PO TID PRN muscle spasm 01/15/25 01/15/25 History ibuprofen 200 mg tablet (Addaprin) 400 mg PO Q8H PRN fever or pain 01/15/25 01/15/25 History polyethylene glycol 3350 17 8.5 g PO DAILY PRN constipation 01/15/25 01/11/25 History gram/dose oral powder (ClearLax) Allergy/AdvReac Type Severity Reaction Status Date / Time No Known Allergies Allergy Verified 01/15/25 11:46 Family History Mother Anemia Angina at rest Arthritis Heart disease Diabetes Myocardial infarction Hypertension Kidney disease High cholesterol Age related osteoporosis CVA (cerebral vascular accident) Cancer kidney Father Arthritis Skin cancer Pulmonary hypertension Surgical History Hx of cataract removal with insertion of prosthetic lens History of back surgery History of knee replacement Social History household members: none housing: house current occupational status: retired current occupation: farming Smoking Status: Never smoker alcohol intake: never substance use type: does not use what type of physical activity do you participate in: none seatbelt use: always do you feel safe at home: Yes ROS ROS Narrative General: Denies fever/chills HENT: Denies headache, denies stuffy nose, denies sore throat EYES: Denies changes in vision Resp: Little bit of a chronic cough, denies shortness of breath Cardiac: Denies chest pain GI: Left lower quadrant abdominal pain, constipation but has been having loose stool with no formed passing, denies nausea/vomiting : Denies changes in urination Extremity: Denies swelling MSK: Denies weakness but does have pain in back that makes it difficult to ambulate, waxes and wanes Neuro: Denies any numbness/tingling Heme: Denies any bleeding or bruising Skin: Denies rashes Psychiatric: No complaints voiced Vital Signs Vital Signs Vital Signs: 01/15/25 11:45 01/15/25 11:45 01/15/25 12:09 Temperature 96.1 F L Temperature Source Temporal Pulse Rate 73 71 71 Respiratory Rate 14 12 18 Blood Pressure 81/59 L 88/39 L 144/78 H Blood Pressure Mean 66 55 100 Pulse Ox 95 96 96 Oxygen Delivery Method Room Air Room Air 01/15/25 13:00 01/15/25 14:00 01/15/25 14:07 Temperature 98 F Temperature Source Pulse Rate 98 69 69 Respiratory Rate 16 14 14 Blood Pressure 144/89 H 133/86 H 133/86 H Blood Pressure Mean 107 101 101 Pulse Ox 98 96 96 Oxygen Delivery Method 01/15/25 15:00 Temperature Temperature Source Pulse Rate 73 Respiratory Rate 11 L Blood Pressure 129/77 H Blood Pressure Mean 91 Pulse Ox 95 Oxygen Delivery Method Weight Weight: 160.5 kg Body Mass Index (BMI) 47.9 Physical Exam Narrative General: Alert, no apparent distress HEENT: Atraumatic, normocephalic Eyes: Anicteric, normal conjunctiva, extraocular movements grossly intact Neck: Supple Respiratory: Clear to auscultation bilaterally, normal respiratory effort Cardiovascular: Regular rate and rhythm GI: Slightly firm and a little bit of tenderness in left lower quadrant without rebound, guarding, rigidity Extremities: No edema Musculoskeletal: Moving all extremities Neuro: No overt focal neurological deficits Skin: No rashes appreciated Psych: Cooperative Results Lab / Micro Data 01/15/25 12:39 01/15/25 12:39 Labs: Laboratory Results - last 24 hr 01/15/25 12:39: WBC 6.6, RBC 4.83, Hgb 15.0, Hct 42.9, MCV 88.8, MCH 31.1, MCHC 35.0, RDW Std Deviation 43.3, RDW Coeff of Shayan 13.4, Plt Count 176, MPV 11.2, Immature Gran % (Auto) 0.200, Neut % (Auto) 61.6, Lymph % (Auto) 24.8, [place] % (Auto) 10.7 H, Eos % (Auto) 1.8, Baso % (Auto) 0.9, Absolute Neuts (auto) 4.1, Absolute Lymphs (auto) 1.64, Nucleated RBC % 0, Sodium 140, Potassium 4.3, Chloride 106, Carbon Dioxide 24.0, Anion Gap 10, BUN 13, Creatinine 0.72, Estim Creat Clear Calc 136.53, Est GFR (MDRD) Non-Af 99, BUN/Creatinine Ratio 18.1, Glucose 100 H, Lactic Acid < 1.0, Calcium 8.9, Total Bilirubin 0.59, AST 44 H, ALT 10, Alkaline Phosphatase 62, Total Protein 7.5, Albumin 4.2, Globulin 3.3, Albumin/Globulin Ratio 1.3 01/15/25 13:24: Urine Color Yellow, Urine Clarity Clear, Urine pH 6.0, Ur Specific [place] 1.010, Urine Protein Negative, Urine Glucose (UA) Normal, Urine Ketones Negative, Urine Occult Blood Negative, Urine Nitrite Negative, Urine Bilirubin Negative, Urine Urobilinogen Normal, Ur Leukocyte Esterase Negative, Urine RBC 0 SEEN, Urine WBC 0 SEEN, Ur Squamous Epith Cells 0 SEEN, Urine Bacteria 0 SEEN, Urine Mucus 0 SEEN Imaging Radiology Impression Abdomen/Pelvis CT 01/15/25 12:13 IMPRESSION: 1. Hepatomegaly with fatty infiltration. 2. Umbilical hernia containing fat. 3. Fecal retention in the colon consistent with constipation. 4. Bilateral inguinal hernias. 5. Colonic diverticulosis without acute diverticulitis. Reading Location: [facility] Assessment & Plan Assessment/Plan (1) Constipation: (2) Back pain: (3) Adult failure to thrive: PLAN: Plan #Severe Constipation -Rectal exam in the ED without distal impaction able to be relieved -CT confirms patient still has fecal retention consistent with constipation -Patient has been taking MiraLAX with only liquid stool going around solid stool -Will schedule oral regimen and enema -Also have postvoid scan to verify patient not retaining due to significant constipation in conjunction with his BPH # Back pain from degenerative changes and lumbar stenosis -Chronic and worsening with time but waxes and wanes day by day currently and seems associated with his abdominal pain, MRI done in outlying facility, does have spinal stenosis at L5-S1 and some degenerative changes -May need to consider pain management versus Ortho neuro evaluation given it is impacting his quality of life -Will assess how patient does with PT and how he does after constipation is relieved, if still having significant difficulties may need to consider consultation and possible placement however given the correlation of the back pain with the abdominal pain and constipation he may have improvement after having bowel movements -Supportive care # Parkinson's disease - continue home Sinemet - supportive care #Chronic BPH with obstruction -Continue home medications #Morbid obesity -BMI documented as 48 kg/m? at time of admission -Complicates treatment, prognosis, outcomes -Recommend weight loss and lifestyle changes #DVT ppx: SCDs Janett Conti MD Time spent in the patient's overall evaluation, decision-making process, review of diagnostic data, adjustment of management, discussion with other providers, nursing and ancillary staff involved in patient's care documentation, 56 Minutes Charges/Coding Visit Charges Inpatient E&M: 12351 Init Hosp L2
--- NOTE | 2025-01-15 16:00 | CASEMGMT ---
Care Management Face to Face with patient for initial transition planning/care coordination assessment in the ED. This typewriters functional tester introduced self and role at [facility]. Patient alert and oriented. Patient's sister, Richelle, and nephew, Juan J, bedside. Patient is mostly deaf and gave permission for Richelle to help with answering questions. Care providers, pharmacy, and demographics verified. Admitting Diagnosis: Constipation, Back pain, Adult failure to thrive Other diagnosis history: Parkinson's, BPH, chronic back pain, constipation PCP: Yandel Jane Specialists: Puneet, neurology. Preferred Pharmacy: [facility] Insurance: Medicare A B (primary). Medical [place] (secondary). Prescription Benefit: yes Living Will/HPOA: sisterRichelle is primary HCPOA and brother, Stanley, is secondary HCPOA. Richelle stated intent to bring documents in during admission. LNOK: 1 Richelle ruiz. 1 brother, Stanley. Living Arrangements: lives alone in a 2 story home, but 1st floor living. 3 steps to enter. Usually independent at baseline, but patient has reportedly been declining over the last month in patient's ability to complete ADLs and IADLs as usual. Transportation: patient drives, though Richelle attends appointments with patient for comprehension reasons DME: walker HHC: none SNF/Rehab: none Community Resources: none, though Richelle states having to take meals over for patient over the last 2 weeks. Patient goals: Patient's sister, Richelle, wishes to have discharge home if patient can gain strength during the hospital stay. Patient's sister states being open to SNF should patient's back pain and weakness remain. Patient shook head in agreement. Disposition Plan: admission to acute; RN CM/SW to follow for discharge planning needs that may arise. Ana Luisa Goyal, [employer], CUT [employer]UL[employer]ER
[2025-01-15] MEDS: Fleet Enema 133 ML RC (18:24)
[2025-01-15] MEDS: Dorzolamide HCL/Timolol 10 ml Bottle 1 DRP OPHTHALMIC (21:50)
[2025-01-15] MEDS: Tamsulosin HCl 0.4 MG Capsule PO (21:50)
[2025-01-15] MEDS: Senna/Docusate Sodium 1 Tablet 2 TABLET PO (21:50)
[2025-01-15] MEDS: Acetaminophen 325 MG Tablet 650 MG PO (21:57)
[2025-01-15] MEDS: MELATONIN 3 MG TABLET PO (21:57)
[2025-01-15] MEDS: Carbidopa/Levodopa 25/100 Tablet PO (21:59)
[2025-01-16 02:00] VITALS: BP 119/75; PULSE 79; RESP 16; TEMP 36.6; O2SAT 94
[2025-01-16 04:14] LABS: Absolute Lymphocyte Count 1.96 X10^3/uL (0.83-4.51); Absolute Neutrophil Count 2.7 X10^3/uL (2.0-7.7); Basophil# 0.04 X10^3/uL; Basophil% 0.8 % (0-1); Eosinophils% 1.9 % (0-5); Hematocrit 40.3 % (40-54); Hemoglobin 14.1 g/dL (13.0-16.5); Lymphocyte # 1.96 X10^3/ul (0.83-4.51); Lymphocyte % 36.9 % (19-41); Mean Corpuscular Hgb 30.7 pg (27.0-32.0); Mean Corpuscular Volume 87.8 fL (80-94); Monocyte# 0.54 X10^3/uL; Monocyte% 10.2 % (0-10); NRBC Flagged by Analyzer 0 % (0-5); Neutrophil # 2.66 X10^3/uL (2.7-7.7); Platelet Count 156 K/mm3 (150-450); RBC Distribution Width CV 13.5 % (11.6-14.6); RBC Distribution Width SD 43.4 fl (35.1-43.9); Red Blood Count 4.59 M/mm3 (4.6-6.2); White Blood Count 5.3 K/mm3 (4.4-11.0)
[2025-01-16 04:44] LABS: Anion Gap 12 (5-15); BUN 12 mg/dL (4-19); BUN/Creat Ratio 19.7 RATIO (10-20); Calcium,Total 8.5 mg/dL (7.6-11.0); Chloride 108 mmol/L (98-108); Creatinine, Serum 0.61 mg/dL (0.70-1.20); EST Glomerular Filtration Rate 104 (>60); Estimated Creatinine Clearance 134.31 ml/min (50-250); Glucose 105 mg/dL (70-99); Potassium 3.8 mmol/L (3.3-5.1); Sodium Level 140 mmol/L (133-145)
[2025-01-16] MEDS: Carbidopa/Levodopa 25/100 Tablet PO ×2 (05:54→11:22)
[2025-01-16 08:39] VITALS: BP 133/76; PULSE 80; RESP 16; TEMP 36.6; O2SAT 94
[2025-01-16] MEDS: Senna/Docusate Sodium 1 Tablet 2 TABLET PO (08:41)
[2025-01-16] MEDS: Dorzolamide HCL/Timolol 10 ml Bottle 1 DRP OPHTHALMIC (08:42)
[2025-01-16] MEDS: Acetaminophen 325 MG Tablet 650 MG PO (08:48)
--- NOTE | 2025-01-16 09:08 | PN.HOSP_ITS ---
Reason for Visit Reason for Visit: Diagnoses Constipation, unspecified (01/15/25) Dorsalgia, unspecified (01/15/25) Adult failure to thrive (01/15/25) Objective Data Objective Data Vital Signs: Vital Signs Temp Pulse Resp BP Pulse Ox O2 Del Method 97.8 F 80 16 133/76 H 94 Room Air 01/16/25 08:39 01/16/25 08:39 01/16/25 08:39 01/16/25 08:39 01/16/25 08:39 01/16/25 08:54 Oxygen Delivery Method Room Air Weight: 156 kg Body Mass Index (BMI) 46.6 Intake & Output: Intake and Output for Last 24 Hours 01/14/25 01/15/25 01/16/25 23:59 23:59 23:59 Intake Total 1000 / 1000 Output Total 1350 / 1350 300 / 300 Balance -350 / -350 -300 / -300 Lab / Micro Data 01/16/25 03:43 01/16/25 03:43 Labs: Laboratory Results - last 24 hr 01/15/25 12:39: WBC 6.6, RBC 4.83, Hgb 15.0, Hct 42.9, MCV 88.8, MCH 31.1, MCHC 35.0, RDW Std Deviation 43.3, RDW Coeff of Shayan 13.4, Plt Count 176, MPV 11.2, Immature Gran % (Auto) 0.200, Neut % (Auto) 61.6, Lymph % (Auto) 24.8, [place] % (Auto) 10.7 H, Eos % (Auto) 1.8, Baso % (Auto) 0.9, Absolute Neuts (auto) 4.1, Absolute Lymphs (auto) 1.64, Nucleated RBC % 0, Sodium 140, Potassium 4.3, Chloride 106, Carbon Dioxide 24.0, Anion Gap 10, BUN 13, Creatinine 0.72, Estim Creat Clear Calc 136.53, Est GFR (MDRD) Non-Af 99, BUN/Creatinine Ratio 18.1, G lucose 100 H, Lactic Acid < 1.0, Calcium 8.9, Total Bilirubin 0.59, AST 44 H, ALT 10, Alkaline Phosphatase 62, Total Protein 7.5, Albumin 4.2, Globulin 3.3, Albumin/Globulin Ratio 1.3 01/15/25 13:24: Urine Color Yellow, Urine Clarity Clear, Urine pH 6.0, Ur Specific [place] 1.010, Urine Protein Negative, Urine Glucose (UA) Normal, Urine Ketones Negative, Urine Occult Blood Negative, Urine Nitrite Negative, Urine Bilirubin Negative, Urine Urobilinogen Normal, Ur Leukocyte Esterase Negative, Urine RBC 0 SEEN, Urine WBC 0 SEEN, Ur Squamous Epith Cells 0 SEEN, Urine Bacteria 0 SEEN, Urine Mucus 0 SEEN 01/16/25 03:43: WBC 5.3, RBC 4.59 L, Hgb 14.1, Hct 40.3, MCV 87.8, MCH 30.7, MCHC 35.0, RDW Std Deviation 43.4, RDW Coeff of Shayan 13.5, Plt Count 156, MPV 11.0, Immature Gran % (Auto) 0.200, Neut % (Auto) 50.0, Lymph % (Auto) 36.9, M giovanna % (Auto) 10.2 H, Eos % (Auto) 1.9, Baso % (Auto) 0.8, Absolute Neuts (auto) 2.7, Absolute Lymphs (auto) 1.96, Nucleated RBC % 0, Sodium 140, Potassium 3.8, Chloride 108, Carbon Dioxide 21.0, Anion Gap 12, BUN 12, Creatinine 0.61 L, Estim Creat Clear Calc 134.31, Est GFR (MDRD) Non-Af 104, BUN/Creatinine Ratio 19.7, Glucose 105 H, Calcium 8.5 Radiography Diagnostic Testing: Radiology Impression Abdomen/Pelvis CT 01/15/25 12:13 IMPRESSION: 1. Hepatomegaly with fatty infiltration. 2. Umbilical hernia containing fat. 3. Fecal retention in the colon consistent with constipation. 4. Bilateral inguinal hernias. 5. Colonic diverticulosis without acute diverticulitis. Reading [facility]
[2025-01-16] MEDS: Lactulose 20 GM/30 ML UDC PO (10:34)
--- NOTE | 2025-01-16 11:13 | CASEMGMT ---
Addendum entered by Basilia Gandhi 01/16/25 16:09: [facility] is only able to provide SN and PT. Pt sister aware. New order entered. Addendum entered by Basilia Gandhi 01/16/25 15:31: TC to pt sister Richelle to make aware that [facility] has accepted pt. She was provided with telephone number and denies further needs for pt at this time. Addendum entered by Basilia Gandhi 01/16/25 14:10: Pt needs to leave per nurse. They are aware that RN CM will call with HH agency who accepts as there is not an accepting agency at this time. Original Note: RN ERI notified by hospitalist that pt wants HHC. RN CM into pt room, therapy evals pending. Pt sister present in room. Pt deferred to sister for all questions. She seems hesitant to have HH services but did take a list of C providers including quality and resource use data and consistent with the patient?s preferred geographic region, medical needs, and insurance network were provided from the [employer] Guide. Pt to review with sister and they will call their brother to discuss. RN CM to check back and follow therapy evals for appropriateness.
--- NOTE | 2025-01-16 11:40 | PCM.DC.SUM ---
Providers Date of Admission: 01/15/25 Date of Discharge: 01/16/25 Primary Care Physician: Dr. Yandel Jane, DO Reason For Visit: BACK PAIN, CONSTIPATION, FAILURE TO THRIVE Diagnosis Discharge Diagnosis (1) Constipation: Status: Acute Code(s): K59.00 - Constipation, unspecified (2) Back pain: Status: Acute Code(s): M54.9 - Dorsalgia, unspecified (3) Adult failure to thrive: Status: Acute Code(s): R62.7 - Adult failure to thrive Medications at Discharge Home Medications dorzolamide 22.3 mg-timolol 6.8 mg/mL eye drops 1 drp ophthalmic (eye) BID 03/20/24 carbidopa 25 mg-levodopa 100 mg tablet 1 tab PO TID #90 tabs 07/24/24 tamsulosin 0.4 mg capsule 0.4 mg PO QHS #90 caps 12/11/24 ascorbic acid 1,000 ha-qoghinaxilnh-gllaaigv powder effervescent pack (Emergen-C) 1 ea PO DAILY 01/15/25 cyclobenzaprine 10 mg tablet 10 mg PO TID PRN muscle spasm 01/15/25 ibuprofen 200 mg tablet (Addaprin) 400 mg PO Q8H PRN fever or pain 01/15/25 acetaminophen 500 mg tablet (Tylenol Extra Strength) 1,000 mg (2 x 500 mg) PO Q8 #1 TAB 01/16/25 lactulose 10 gram/15 mL oral solution 20 g (30 mL) PO BID PRN constipation #473 mL 01/16/25 polyethylene glycol 3350 17 gram/dose oral powder (ClearLax) 8.5 g PO DAILY constipation #119 grams 01/16/25 psyllium husk 3.4 gram/5.4 gram oral powder (Metamucil) 1 tbsp PO DAILY #660 grams 01/16/25 sennosides 8.6 mg-docusate sodium 50 mg tablet (Stimulant Laxative Plus) 2 tab PO BID #60 tabs 01/16/25 Hospital Course Operations None Procedures - (CT abdomen and pelvis) Summary of Care Provided Minutes Spent on Discharge: 38 Hospital Course: Mr. Willis is a 69-year-old white male with a history of Parkinson disease and chronic constipation who presented to the emergency department [facility] on 01/15/2025 with severe constipation and back pain as well as difficulty caring for self at home. The patient has had ongoing issues with constipation and has been seen twice in the [place] ED. The first time he was given MiraLAX and sent home and the second time he was admitted and had an MRI of his back which showed nothing acute but did have multiple levels of degenerative disc disease as well as spinal stenosis at L5 and S1. He was ultimately discharged home but had follow-up with his primary care physician. They were trying to get him into the car to take him to the appointment but were not able to the emergency department. Vital signs on presentation showed temperature of 96.1, heart rate 73, blood pressure is 144/78, respiratory rate is 14 and oxygen saturation was 95 to 96% on room air. His CBC was unremarkable. His chemistry panel was unremarkable. Lactic acid was negative. He had mild AST elevation at 44 but the rest of his liver function was unremarkable. His UA was negative. A CT of his abdomen pelvis was performed and showed hepatomegaly with fatty infiltration, umbilical hernia containing fat, significant fecal retention in the colon with marked constipation, bilateral inguinal hernias and colonic diverticulosis without acute diverticulitis. Repeat imaging of his lumbar spine was not performed given the fact that he just had an MRI elsewhere. It was felt that his back pain was likely related to severe constipation. He had a rectal exam in the ED without distal impaction he was given a scheduled oral regimen along with an enema and had a large bowel movement on the day of admission. His back pain significantly improved. He was seen by physical Occupational Therapy and did fairly well with a wheeled walker. They felt he was safe to go home with home health care. His sister is at the bedside and we had extensive conversation with regards to his bowel regimen. Ideally he would increase his exercise, fluid intake, and oral fiber intake from natural sources including fruits and vegetables however she states she does not do this on a regular basis. Will go ahead and schedule MiraLAX and senna-docusate for now. He was also given as needed lactulose to take if he has not had a bowel movement within 3 days he is to take a dose and see if this resolves his constipation within 24 hours. We also long discussion about increasing his exercise, fluid intake, and fruits and vegetables. He seemed to voiced understanding. His sister was at the bedside and voiced understanding. He was able to be discharged home with home health care services on 01/16/2025 in stable condition. I have asked that he follow-up with his primary care physician within next week. Discharge diagnoses: Severe constipation-resolved Acute on chronic back pain-acuity resolved Generalized weakness/debility Parkinson disease BPH with obstruction Morbid obesity Physical Exam Const alert, oriented x3, no apparent distress, no limitations and well nourished Constitutional Narrative: Morbidly obese, upper middle-aged, white male, sitting up in a chair at the bedside ambulating back to the room with physical therapy, sister at bedside, affect is flat General Appearance: cooperative, comfortable, well kempt and well developed Exam Limitations: no limitations Nutritional Appearance: morbidly obese HEENT normocephalic, head/scalp atraumatic, hearing grossly normal bilaterally and moist oral mucous membranes HEENT Narrative: Mallampati 3, no thrush Eyes EOMs intact bilaterally and conjunctivae normal Eyes Narrative: No scleral icterus Neck supple Neck Narrative: Trachea midline Resp normal respiratory effort, no retractions, no use of accessory muscles and clear to auscultation bilaterally Auscultation: Negative for crackles, rhonchi or wheezes Cardio regular rate, regular rhythm, S1 normal heart sound, S2 normal heart sound, no murmurs, no rub, no gallops and no clicks GI normal to inspection, nondistended, normoactive bowel sounds, soft to palpation and non-tender GI Narrative: Large protuberant abdomen Extremity no clubbing, cyanosis or edema Extremity Narrative: 2+ pedal pulses, 2+ radial pulses Skin skin turgor normal, no jaundice, no petechiae and no mottling Neuro oriented x3 and moves all extremities Neuro Narrative: Significant bradykinesia, resting tremor noted, masked facies, speech is clear but delayed response times Psych Psych Narrative: Affect is flat but patient interacts and makes good eye contact Weight / BMI Weight Weight: 156 kg Body Mass Index (BMI) 46.6 ABG / Lab / Microbiology Data 01/16/25 03:43 01/16/25 03:43 Laboratory: Laboratory Results - last 24 hr 01/15/25 12:39: WBC 6.6, RBC 4.83, Hgb 15.0, Hct 42.9, MCV 88.8, MCH 31.1, MCHC 35.0, RDW Std Deviation 43.3, RDW Coeff of Shayan 13.4, Plt Count 176, MPV 11.2, Immature Gran % (Auto) 0.200, Neut % (Auto) 61.6, Lymph % (Auto) 24.8, [place] % (Auto) 10.7 H, Eos % (Auto) 1.8, Baso % (Auto) 0.9, Absolute Neuts (auto) 4.1, Absolute Lymphs (auto) 1.64, Nucleated RBC % 0, Sodium 140, Potassium 4.3, Chloride 106, Carbon Dioxide 24.0, Anion Gap 10, BUN 13, Creatinine 0.72, Estim Creat Clear Calc 136.53, Est GFR (MDRD) Non-Af 99, BUN/Creatinine Ratio 18.1, Glucose 100 H, Lactic Acid < 1.0, Calcium 8.9, Total Bilirubin 0.59, AST 44 H, ALT 10, Alkaline Phosphatase 62, Total Protein 7.5, Albumin 4.2, Globulin 3.3, Albumin/Globulin Ratio 1.3 01/15/25 13:24: Urine Color Yellow, Urine Clarity Clear, Urine pH 6.0, Ur Specific [place] 1.010, Urine Protein Negative, Urine Glucose (UA) Normal, Urine Ketones Negative, Urine Occult Blood Negative, Urine Nitrite Negative, Urine Bilirubin Negative, Urine Urobilinogen Normal, Ur Leukocyte Esterase Negative, Urine RBC 0 SEEN, Urine WBC 0 SEEN, Ur Squamous Epith Cells 0 SEEN, Urine Bacteria 0 SEEN, Urine Mucus 0 SEEN 01/16/25 03:43: WBC 5.3, RBC 4.59 L, Hgb 14.1, Hct 40.3, MCV 87.8, MCH 30.7, MCHC 35.0, RDW Std Deviation 43.4, RDW Coeff of Shayan 13.5, Plt Count 156, MPV 11.0, Immature Gran % (Auto) 0.200, Neut % (Auto) 50.0, Lymph % (Auto) 36.9, [place] % (Auto) 10.2 H, Eos % (Auto) 1.9, Baso % (Auto) 0.8, Absolute Neuts (auto) 2.7, Absolute Lymphs (auto) 1.96, Nucleated RBC % 0, Sodium 140, Potassium 3.8, Chloride 108, Carbon Dioxide 21.0, Anion Gap 12, BUN 12, Creatinine 0.61 L, Estim Creat Clear Calc 134.31, Est GFR (MDRD) Non-Af 104, BUN/Creatinine Ratio 19.7, Glucose 105 H, Calcium 8.5 Radiography Diagnostic Testing: Radiology Impression Abdomen/Pelvis CT 01/15/25 12:13 IMPRESSION: 1. Hepatomegaly with fatty infiltration. 2. Umbilical hernia containing fat. 3. Fecal retention in the colon consistent with constipation. 4. Bilateral inguinal hernias. 5. Colonic diverticulosis without acute diverticulitis. Reading Location: [facility] D/C Instructions Discharge Diet: Low fat / Low cholesterol (Increase fiber in diet with fruits and vegetables) Discharge Activity: Return to Normal Activity DC O2, CPAP, BIPAP Needs Home O2 Discharge instructions: No Meaningful Use Info Meaningful Use Meaningful Use Diagnoses (Choose all that apply): None applicable Ischemic Stroke Statin Dosing Therapy Reference: STATIN DOSE THERAPY REFERENCE: * Patients > 75 years receive moderate or high dose statin therapy. * Patients 75 years or YOUNGER should receive HIGH intensity statin dose unless contraindicated. You will be required to document reason for non-treatment if statin daily dose does not meet guidelines. HIGH DOSE STATIN THERAPY DAILY Atorvastatin > than or = to 40 mg Rosuvastatin > than or = to 20 mg Amlodipine + Atorvastatin > than or = to 2.5/40 mg Ezetimibe + Simvastatin 10/80 mg Simvastatin 80mg Discharge Plan Admission Admit Date/Time: 01/15/25 15:30 Primary Reason for Your Visit: Back pain/constipation Attending Provider: Darling Henley Primary Care Provider: Yandel Jane Consulting Providers: Janett Conti Instructions Additional Instructions / Restrictions: 1. Please try to get plenty of fluids and this will help with constipation 2. Increase your intake of fruits and vegetables 3. Goal is to have a bowel movement at least every 3 days. If you do not have a bowel movement on day 3 take lactulose as directed below 4. Increase fiber intake but with this will need increased water intake 5. Increase your exercise as this will increase the regularity of your bowel movements as well combined with the above Discharge Orders/Prescriptions Prescriptions: New lactulose 10 gram/15 mL Solution 20 g PO BID PRN (Reason: constipation) Qty: 473 0RF Rx Instructions: Please take if not having bowel movement every 3 days until bowel movement starts sennosides-docusate sodium [Stimulant Laxative Plus] 8.6-50 mg Tablet 2 tab PO BID Qty: 60 1RF acetaminophen [Tylenol Extra Strength] 500 mg tablet 1,000 mg PO Q8 Qty: 1 0RF Continued dorzolamide-timolol 22.3-6.8 mg/mL drops 1 drp ophthalmic (eye) BID carbidopa-levodopa 25-100 mg tablet 1 tab PO TID Qty: 90 7RF ibuprofen [Addaprin] 200 mg tablet 400 mg PO Q8H PRN (Reason: fever or pain) cyclobenzaprine 10 mg tablet 10 mg PO TID PRN (Reason: muscle spasm) Emergen-C 1,000 mg powder effervescent in packet 1 ea PO DAILY Metamucil 3.4 gram/5.4 gram powder 1 tbsp PO DAILY Qty: 660 0RF Patient Comments: PT HAS NOT TAKEN RECENTLY, HASN'T MADE HIM FEEL GOOD. Rx Instructions: mix into at least 8 oz of water or juice before administering Be sure you are getting plenty of fluids while taking Metamucil tamsulosin 0.4 mg capsule 0.4 mg PO QHS Qty: 90 0RF Changed polyethylene glycol 3350 [ClearLax] 17 gram/dose powder 8.5 g PO DAILY Qty: 119 0RF Referrals / Follow Up: Yandel Jane DO [Primary Care Provider] - In 1 Week (Hospital follow-up) Kyle Musa MD [Med Staff - Active Staff] - See Referral Note (Call for appointment for your ongoing back issues) Disposition Disposition (needs filled in before D/C Order can be placed): Home Health Service Charges/Coding Visit Charges Inpatient E&M: 98738 Disch Hosp >30min
--- NOTE | 2025-01-16 12:06 | CASEMGMT ---
Addendum entered by Karine Mancuso 01/16/25 14:07: All have declined d/t being out of area. RN CM updated. Karine Mancuso DC Planning Asst Original Note: Discharge Planning HH referral sent to [facility], [facility], and [facility]. Karine Mancuso DC Planning Asst.
[2025-01-16 13:37] VITALS: BP 138/70; PULSE 98; RESP 18; TEMP 36.6; O2SAT 96
--- NOTE | 2025-01-16 14:15 | CASEMGMT ---
Addendum entered by Karine Mancuso 01/16/25 16:12: Amended HH order sent via [facility] to [facility]. Karine Mancuso DC Planning Asst. Addendum entered by Karine Mancuso 01/16/25 15:57: [facility] declined. [facility] has accepted and was instructed to coordinate soc with pts sister. Karine Mancuso DC Planning Asst. Original Note: Discharge Planning HH referral sent to [facility], and [facility]. Karine Salinas DC Planning Asst.
--- NOTE | 2025-01-16 15:39 | PHA.DC_ITS ---
Pharmacy [place] Med Reconciliation Pharmacy Service has performed discharge medication reconciliation for this patient. Medication education papers prepared, patient discharged when counseling was attempted. Medications reviewed. The patient's discharge medication list was reviewed for discrepancies and discrepancies were resolved. Medications at Discharge Home Medications dorzolamide 22.3 mg-timolol 6.8 mg/mL eye drops 1 drp ophthalmic (eye) BID 03/20/24 carbidopa 25 mg-levodopa 100 mg tablet 1 tab PO TID #90 tabs 07/24/24 tamsulosin 0.4 mg capsule 0.4 mg PO QHS #90 caps 12/11/24 ascorbic acid 1,000 mt-yulaijkrcebu-bsrodgch powder effervescent pack (Emergen- C) 1 ea PO DAILY 01/15/25 cyclobenzaprine 10 mg tablet 10 mg PO TID PRN muscle spasm 01/15/25 ibuprofen 200 mg tablet (Addaprin) 400 mg PO Q8H PRN fever or pain 01/15/25 acetaminophen 500 mg tablet (Tylenol Extra Strength) 1,000 mg (2 x 500 mg) PO Q8 #1 TAB 01/16/25 lactulose 10 gram/15 mL oral solution 20 g (30 mL) PO BID PRN constipation #473 mL 01/16/25 polyethylene glycol 3350 17 gram/dose oral powder (ClearLax) 8.5 g PO DAILY constipation #119 grams 01/16/25 psyllium husk 3.4 gram/5.4 gram oral powder (Metamucil) 1 tbsp PO DAILY #660 grams 01/16/25 sennosides 8.6 mg-docusate sodium 50 mg tablet (Stimulant Laxative Plus) 2 tab PO BID #60 tabs 01/16/25
== END 2025-01-16 14:26 | disposition home health service (06) ==
LOC: ED 14:12 → MS3 01-16 06:49
PROVIDERS: Admitting Provider Internal Medicine; Emergency Provider Emergency Medicine; PCP Family Medicine; Visit Provider Internal Medicine
DX: K59.00 Constipation, unspecified (principal); G20.A1 Parkinson's disease without dyskinesia, without mention of fluctuations; E66.01 Morbid (severe) obesity due to excess calories; Z68.42 Body mass index [BMI] 45.0-49.9, adult; R53.81 Other malaise; R62.7 Adult failure to thrive; M48.07 Spinal stenosis, lumbosacral region; G89.29 Other chronic pain; K40.20 Bilateral inguinal hernia, without obstruction or gangrene, not specified as recurrent; N40.1 Benign prostatic hyperplasia with lower urinary tract symptoms; H91.90 Unspecified hearing loss, unspecified ear; N13.8 Other obstructive and reflux uropathy; K42.9 Umbilical hernia without obstruction or gangrene; R16.0 Hepatomegaly, not elsewhere classified; K57.30 Diverticulosis of large intestine without perforation or abscess without bleeding; R53.1 Weakness; Z79.899 Other long term (current) drug therapy
CPT/HCPCS: 36415; 74177; 80048; 80053; 81001; 83605; 85025; 96360; 97162; 97166; 99221; 99284; Q9967; G0378